=== PATIENT | male | born 1950 | race Caucasian/White ===

== ENCOUNTER 2016-06-29 11:43 | Inpatient (IN) | payer BC ==
[2016-06-29] VITALS (12 sets, daily range): BP systolic 73–183; BP diastolic 54–104
[~2016-06-29] VITALS: Ht 167.6 cm; Wt 61.7 kg
[2016-06-29] MEDS ORDERED: PROPOFOL 10 MG/ML (20ML) VIAL. IV ONE (12:00)
[2016-06-29] MEDS ORDERED: SUCCINYLCHOLINE 200 MG/10 ML VIAL. ONE (12:00)
[2016-06-29] MEDS ORDERED: ALBU8.5H5 IH (12:23)
[2016-06-29] MEDS ORDERED: ASPI81TA50 PO (12:23)
[2016-06-29] MEDS ORDERED: METO25TA9 PO (12:23)
[2016-06-29] MEDS ORDERED: BUDE10.2 IH (12:23)
[2016-06-29] MEDS ORDERED: FERR159T3 PO (12:23)
[2016-06-29] MEDS ORDERED: LISI1TAB3 PO (12:23)
[2016-06-29] MEDS ORDERED: ACET500T68 PO (12:23)
[2016-06-29] MEDS ORDERED: CYCL10TA2 PO (12:23)
[2016-06-29] MEDS ORDERED: ALBUTEROL SULFATE 2.5 MG/3 ML NEBU. ONE (12:52)
[2016-06-29] MEDS ORDERED: ALBUTEROL SULFATE 2.5 MG/3 ML NEBU. NEB ONE (13:00)
[2016-06-29 13:05] LABS: BASO # 0.1 x10^3/uL (0.0-0.2); BASO % 1 % (0-3); EOS % 0 % (0-3); HEMATOCRIT 49.6 % (39.0-53.0); HEMOGLOBIN 16.9 g/dL (13.0-17.5); LYMPH # 0.9 x10^3/uL (1.0-4.8); LYMPH % 10 % (24-48); MEAN CORPUSCULAR HEMOGLOBIN 32 pg (25-35); MEAN CORPUSCULAR HGB CONC 34 g/dL (31-37); MEAN CORPUSCULAR VOLUME 94 fL (79-100); MONO % 10 % (0-9); NEUT % 79 % (31-73); PLATELET COUNT 178 x10^3/uL (140-400); RED CELL DISTRIBUTION WIDTH 13.5 % (11.5-14.5); WHITE BLOOD COUNT 9.5 x10^3/uL (4.0-11.0)
[2016-06-29 13:15] LABS: INR 1.4 (0.8-1.1); PROTHROMBIN TIME PATIENT 16.4 SEC (11.7-14.0)
[2016-06-29] MEDS ORDERED: PROPOFOL 100 ML IV ONE (14:52)
[2016-06-29 15:07] LABS: HCO3 ABG 24 mmol/L (21-28); PCO2 ABG 54 mmHg (35-46); PH ABG 7.26 (7.35-7.45); PO2 ABG > 503 mmHg (65-108); SAT O2 ABG 100 % (92-99)
[2016-06-29 15:08] LABS: FIO2 ABG 100
--- NOTE | 2016-06-29 15:14 | RAD ---
Exam: AP portable chest. History: Status post intubation. Comparison: None. Findings: The heart and mediastinal structures are within normal limits for size. Lungs are without infiltrate. No pneumothorax or pleural effusion is appreciated. Endotracheal tube tip projects 7 cm above the mauricio. Esophagogastric tube is present with tip projecting at the fundus. Median sternotomy wires are present. Old right rib fractures are seen. Impression: 1. No acute cardiopulmonary process. 2. Endotracheal tube tip projects 7 cm above the mauricio.
[2016-06-29] MEDS ORDERED: fentaNYL PF VIAL 100 MCG/2 ML VIAL IV PRN (15:15)
[2016-06-29] MEDS: fentaNYL PF VIAL 100 MCG/2 ML VIAL IV PRN ×4 (15:29→23:31)
[2016-06-29] MEDS: PROPOFOL 100 ML IV PRN ×2 (15:32→21:14)
[2016-06-29 15:35] LABS: BASO % 1 % (0-3); EOS % 1 % (0-3); HEMATOCRIT 47.6 % (39.0-53.0); LYMPH # 0.5 x10^3/uL (1.0-4.8); LYMPH % 6 % (24-48); MEAN CORPUSCULAR HEMOGLOBIN 31 pg (25-35); MEAN CORPUSCULAR HGB CONC 34 g/dL (31-37); MEAN CORPUSCULAR VOLUME 94 fL (79-100); MONO % 8 % (0-9); NEUT % 85 % (31-73); PLATELET COUNT 143 x10^3/uL (140-400); RED BLOOD COUNT 5.09 x10^6/uL (4.30-5.70); RED CELL DISTRIBUTION WIDTH 13.2 % (11.5-14.5); WHITE BLOOD COUNT 8.3 x10^3/uL (4.0-11.0)
[2016-06-29 15:44] LABS: CALCIUM 8.5 mg/dL (8.5-10.1); CREATININE 0.5 mg/dL (0.7-1.3); GFR 167.4; POTASSIUM 4.2 mmol/L (3.5-5.1)
[2016-06-29 15:50] LABS: ALBUMIN 3.4 g/dL (3.4-5.0); ALBUMIN/GLOBULIN RATIO 0.9 (1.0-1.7); TOTAL BILIRUBIN 0.9 mg/dL (0.2-1.0); TOTAL PROTEIN 7.3 g/dL (6.4-8.2)
[2016-06-29] MEDS ORDERED: MIDAZOLAM HCL/PF 5 MG/5 ML VIAL. ONE ×2 (15:55→16:00)
[2016-06-29] MEDS ORDERED: MIDAZOLAM HCL/PF 2 MG/2 ML VIAL. IV ONE (16:15)
--- NOTE | 2016-06-29 16:24 | PDOC ---
Provider Note Provider Note full note dictated DESHAWN MARTINEZ MD Jun 29, 2016 16:24
[2016-06-29] MEDS: IPRATRPIUM/ALBUTEROL 0.5/2.5MG 3 ML NEBU. NEB SCH ×2 (17:00→19:40)
[2016-06-29 17:16] LABS: HCO3 ABG 23 mmol/L (21-28); PCO2 ABG 38 mmHg (35-46); PO2 ABG 141 mmHg (65-108); SAT O2 ABG 99 % (92-99)
[2016-06-29 17:17] LABS: FIO2 ABG 40
--- NOTE | 2016-06-29 17:36 | CONS ---
DATE OF CONSULTATION: 06/29/2016 ATTENDING PHYSICIAN: Dr. Kumar. REASON FOR CONSULTATION: Respiratory failure, recently diagnosed lung mass, status post bronchoscopy, and hemoptysis post-bronchoscopy. HISTORY OF PRESENT ILLNESS: The patient is a 65-year-old male who was seen recently in the office on 06/26/2016 for evaluation of a lung mass. He smoked heavily for 50 years up to 2 packs per day and was still smoking cigarettes. He has been having a cough for the past one year, and the cough increased in intensity and was worsening day and night. He had occasional hemoptysis as well. He lost about 20 pounds in the last few months. The patient underwent CT chest at [facility] which showed a 5.4 cm x 5.2 cm mass in the left upper lobe and left hilar area. This was compressing the left upper lobe and also probably resulting in an endobronchial lesion as well. mass was also encroaching the descending aorta. The patient had left upper lobe consolidation which was on a postobstructive basis. He had mild subcarinal adenopathy as well. He was advised to have a bronchoscopy, and he agreed to proceed with it. The patient underwent bronchoscopy today. He had a paralyzed left vocal cord, which explains his hoarseness. He had an endobronchial lesion distal to the left main stem bronchus and near complete occlusion of the left upper lobe bronchus by the endobronchial tumor. He had multiple biopsies performed. Postbiopsy, he did develop bleeding. At that time, I had changed to a therapeutic scope, and all the fresh blood was removed. Squirts of epinephrine were used to stop the bleeding. At the end of inspection, the patient's bleeding had completely stopped, and airway patency was achieved. The patient subsequently was monitored in the Outpatient Bronchoscopy Unit, and 15 minutes post-bronchoscopy, I was called as the patient was in respiratory distress. I arrived immediately, and the patient appeared to be in significant respiratory distress. Nurses have reported that he had coughed up bright red blood as well but appeared to be cyanotic. At that time, Anesthesia was called, and the patient underwent emergent intubation. He was transferred to the ICU and was placed on assist control mode. His initial blood pressure was markedly elevated with systolic in the 180s and diastolic was also in the 120s. There was no fresh blood seen at the time of intubation around the vocal cords or in the endotracheal tube. We did a stat repeat hemoglobin, and it was 16.0, and preprocedure, it was 16.9. Chest x-ray did not reveal any fresh blood in the airway. Once the patient was stabilized, I re-did a bronchoscopy, and only some fresh blood was seen down into the right mainstem. I have carefully inspected the left upper lobe area. There was a clot which has formed in the left upper lobe biopsy site, and there was no active bleeding. The rest of the blood from both the right and left main stem was aspirated. One squirt of epinephrine was again dropped into the left upper lobe biopsy site. The patient's arterial blood gases revealed a pH of 7.26, pCO2 of 54, and pO2 of 503 with a bicarbonate of 24 while on assist control rate of 20 with tidal volume 550. This ABG was obtained at least 35-40 minutes postintubation and postbagging suggesting that his pCO2 may have been markedly elevated at the time of respiratory distress. PAST MEDICAL HISTORY: Significant for COPD, suspect severe from 50 years of tobaccoism up to 2 packs per day. PAST SURGICAL HISTORY: Include back surgery, cyst removals from the breast which were benign, heel and wrist surgery, double bypass surgery in 06/2014, and cataract removal. ALLERGIES: HYDROCODONE. SOCIAL HISTORY: Smoked 50 plus year up to 2 packs per day and was still smoking recently. MEDICATIONS: At home include cyclobenzaprine, metoprolol, lisinopril, low-dose aspirin, Symbicort, albuterol inhaler, and [id number] allergy medicines and iron. REVIEW OF SYSTEMS: Unable to obtain as the patient is on the ventilator. PHYSICAL EXAMINATION: VITAL SIGNS: His latest vital signs while on propofol have varied from systolic of 183 up to systolic in the 120s. HEENT: Sclerae are nonicteric. NECK: Supple. LUNGS: With diminished breath sounds but no wheezing. CARDIOVASCULAR: Regular rate. ABDOMEN: Soft, nontender. EXTREMITIES: With no pitting edema. LABORATORY DATA: Reviewed. ABGs were discussed in my history of present illness. White cell count 8.3, hemoglobin 16.0, and platelets are 143. BUN is 11, creatinine 0.5, and potassium 4.2. IMPRESSION: 1. Acute respiratory failure, status post bronchoscopy. Most likely etiology is related to acute hypercapnic respiratory failure from highly suspected end-stage chronic obstructive pulmonary disease. Hemoptysis post-biopsy with aspiration of blood , effect of sedative resulting in hypoventilation and poor pulmonary reserve, all have contributed to the respiratory failure. However, upon initial evaluation post-biopsy, the bleeding did stop. Upon re-inspection, during another bronchoscopy the clot was still present in the left upper lobe post-biopsy site, and there was no active bleeding seen. In my opinion, predominant respiratory failure was contributed by his underlying poor pulmonary reserve. 2. A 5.4 cm x 5.2 cm mass in the left upper lobe and left hilar area with complete occlusion of the left upper lobe bronchus and also endobronchial lesion starting at the distal left mainstem resulting in near complete occlusion of the left upper lobe bronchus. 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 His stage appears to be advanced at present. We will wait for the biopsy results and may need a PET scan as an outpatient. It does not appear to be surgical at present. 3. Suspected underlying end-stage chronic obstructive pulmonary disease with ongoing tobaccoism. 4. History of hypertension. RECOMMENDATIONS: 1. We will continue with present assist control mode and correct his respiratory acidosis. We will rest him overnight and proceed with CPAP trial in the morning, and if his hypercapnia is compensated on CPAP trials possible extubation. 5. Monitor chest x-ray. No further active bleeding noticed on recent bronchoscopy. Hemoglobin is stable and chest x-ray with no radiographic evidence of alveolar blood. 6. Bronchodilators. 7. SCDs for DVT prophylaxis. 8. We will need PET scan as an outpatient. 9. We will need medical Oncology and Radiation Oncology consultations once biopsy results are confirmed. 10. Discussed with the patient's and the entire family. Discussed with Dr. Kumar as well. Critical Care Time: 40 minutes. DESHAWN MARTINEZ MD DR: MACY/eleazar JOB#: [id number] / [id number]
--- NOTE | 2016-06-29 18:36 | OP ---
DATE OF SURGERY: 06/29/2016 INDICATION: Lung mass and hoarseness suspecting vocal cord paralysis. Informed consent was obtained from the patient. All risks and benefits were explained. He agreed to proceed with the procedure. Sedation was with propofol, was used by Anesthesia. Bronchoscope was introduced initially through the left nostril, but they were tight. As a result, oral route was preferred. Bronchoscope was passed through the upper airway. The vocal cords were reached. The left vocal cord did not move and consistent with paralysis. The right vocal cord did move. Trachea was entered. No tracheal lesions were seen. The mauricio was sharp. The right lung was first examined. Minimal light-colored secretion was seen in the right mainstem. All subsegments of right upper, right middle, and right lower lobe were examined. They were patent. No endobronchial lesions were seen. The left lung was then examined. The distal left mainstem revealed mucosal abnormality consistent with cancer. Further inspection revealed a near total occlusion of the left upper lobe bronchus with the endobronchial lesion. Biopsies x 5 were performed from this area. Bronchial wash was also performed. Post-biopsy bleeding was observed. Epinephrine squirts were used to stop the bleeding, and a therapeutic scope was used to aspirate the blood from the right lung. Bleeding was completely stopped. IMPRESSION: 1. 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 2. Endobronchial lesion seen in the distal left main stem bronchus beyond 2 cm from the left mainstem and then extending into the left upper lobe with near complete occlusion of the left upper lobe bronchus. Biopsies x5 were performed and bronchial wash was performed from this area and sent for appropriate studies. Post-biopsy bleeding was controlled with epinephrine squirts. Adequate clot formed at biopsy site. 3. Follow the results of biopsy and cytology. DESHAWN MARTINEZ MD DR: MACY/eleazar JOB#: [id number] / [id number]
--- NOTE | 2016-06-29 18:45 | HP ---
ADMIT DATE: 06/29/2016 CHIEF COMPLAINT: Respiratory failure. HISTORY OF PRESENT ILLNESS: The patient is a pleasant middle-aged white male who smokes 2-1/2 pack per day for 50 years. He now has a lung mass. Dr. Raphael has been trying to evaluate. He did have a broch today and the patient desatted after some hemoptysis. He has now been intubated and admitted to the ICU [id number]. PAST MEDICAL HISTORY: COPD, lung mass, hypertension and back surgeries, benign breast cyst, healing wrist surgery, cardiac bypass surgery, cataract surgery. ALLERGIES: HYDROCODONE. FAMILY HISTORY: Coronary artery disease. SOCIAL HISTORY: Smokes 2-1/2 pack per day for 50 years. No drinking or drugs. MEDICATIONS: Reviewed, please refer to the MRAD. REVIEW OF SYSTEMS: Unobtainable, the patient is on the vent. PHYSICAL EXAMINATION: VITAL SIGNS: Temperature afebrile, pulse 100, respirations 18, blood pressure 144/90. GENERAL: He is sedated on the vent. HEART: Normal S1, S2. LUNGS: Coarse. ABDOMEN: Soft, positive bowel sounds. EXTREMITIES: Trace edema. SKIN: No rashes. ENDOCRINE: No thyromegaly. LYMPHATICS: No cervical nodes. HEMATOPOIETIC: No bruising. ASSESSMENT AND PLAN: Respiratory failure in a middle-aged male who has a lung mass, suspect this could be a malignancy. The patient has been admitted to the ICU. Dr. Raphael has been consulted. I just discussed the case with him. He is going to repeat the bronch in fact he just completed this there was a lot of blood. He is open to do some in the pulmonary last night and maybe tomorrow, but extubate. For now, we will continue home medicines, ICU monitoring. PROGNOSIS: Guarded, await pathology report. LISA MAST DO DR: AILYN/eleazar JOB#: [id number] / [id number]
--- NOTE | 2016-06-29 20:49 | OP ---
DATE OF SURGERY: BRONCHOSCOPY NOTE INDICATION: To assess the need____ for any bleeding post-biopsy. DESCRIPTION OF PROCEDURE: Informed consent was obtained from the patient's and the patient was already intubated. Bronchoscope was introduced through the endotracheal tube. The distal trachea was visualized. Some minimal fresh blood was seen in the right mainstem and the distal trachea, which was aspirated. Upon further inspection, there was no active bleeding seen in the right lung. Bronchoscope was introduced into the left lung. The previously seen endobronchial mass was covered with a clot. I did not see any active oozing of blood. Minimal dark blood was aspirated from the left lower lobe area. One squirt of epinephrine was also introduced into the clot. IMPRESSION: 1. No active bleeding seen post-biopsy,( especially in the left upper lobe area , where there was a clot that has formed on the biopsy site ) 2. Minimal fresh blood was aspirated from the right mainstem and right lower lobe. The airway patency was achieved. 3. Follow the results of the previous biopsy. DESHAWN MARTINEZ MD DR: MACY/eleazar JOB#: [id number] / [id number]
[2016-06-29] MEDS ORDERED: CHLORHEXIDINE 0.12% 15 ML MOUTHWASH. MM SCH (21:00)
[2016-06-29] MEDS ORDERED: NOREPINEPHRIN PREMIX 250 ML IV PRN (23:15)
[2016-06-29] MEDS ORDERED: IV NORMAL SALINE 1000ML BAG 1,000 ML IV SCH (23:15)
[2016-06-29] MEDS ORDERED: IV NORMAL SALINE 500ML BAG 500 ML IV ONE (23:15)
[2016-06-30] VITALS (22 sets, daily range): BP systolic 81–166; BP diastolic 49–91
[2016-06-30 06:26] LABS: HCO3 ABG 21 mmol/L (21-28); PCO2 ABG 37 mmHg (35-46); PH ABG 7.38 (7.35-7.45); PO2 ABG 106 mmHg (65-108); SAT O2 ABG 98 % (92-99)
[2016-06-30 06:27] LABS: FIO2 ABG 35
[2016-06-30] MEDS: PROPOFOL 100 ML IV PRN (06:50)
[2016-06-30] MEDS ORDERED: ACETAMINOPHEN 325 MG TABLET. PO PRN (07:15)
[2016-06-30] MEDS: IPRATRPIUM/ALBUTEROL 0.5/2.5MG 3 ML NEBU. NEB SCH ×4 (07:32→19:55)
[2016-06-30] MEDS ORDERED: FERROUS SULFATE 325 MG TABLET. PO SCH (08:00)
--- NOTE | 2016-06-30 08:18 | ACF ---
Admit Criteria Forms Admit Criteria Forms Admit Criteria Forms RESPIRATORY FAILURE GRG Clinical Indications for Admission to Inpatient Care (Place 'X' for any and all applicable criteria): Hospital admission is needed for appropriate care of the patient because of acute respiratory failure or insufficiency as indicated by ANY ONE of the following(1)(2)(3)(4)(5)(6)(7)(8): [X]I. Mechanical ventilation needed (acute invasive or noninvasive) [ ]II. Severe ventilation deficit as indicated by ANY ONE of the following (9) [ ]a) Respiratory acidosis (pH less than 7.32 and partial pressure of carbon dioxide greater than 40 mm Hg (5.3 kPa)) [ ]b) Partial pressure of carbon dioxide greater than 44 mm Hg (5.9 kPa ) (new) [ ]c) Airflow measurements less than 25% of predicted (eg, peak expiratory flow rate less than 100 L/minute) [ ]d) Forced vital capacity less than 15 mL/kg of ideal body weight, or 50% decrease in vital capacity from baseline [ ]III. Noncardiac pulmonary edema not resolving with rapid emergency treatment (8) [ ]IV. Severe respiratory distress as indicated by ANY ONE of the following: [ ]a) Severe tachypnea (respiratory rate greater than 30, greater than 45 for 6-month-old, greater than 60 for ) [ ]b) Severe hypoxemia (partial pressure of oxygen less than 50 mm Hg ( 6.7 kPa) on greater than 50% oxygen or partial pressure of oxygen to FIO2 ratio less than 200) [ ]c) Mental status deterioration from respiratory disease [ ]V. Airway obstruction or inadequate protection [A](10)(11) The original [employer] content created by [employer] has been revised. The portions of the content which have been revised are identified through the use of italic text or in bold, and [employer] has neither reviewed nor approved the modified material. All other unmodified content is copyright [employer]. Please see references footnoted in the original [employer] edition 2016 HELGA BARRIENTOS Jun 30, 2016 08:18
[2016-06-30 08:26] LABS: HCO3 ABG 22 mmol/L (21-28); PCO2 ABG 38 mmHg (35-46); PH ABG 7.38 (7.35-7.45); PO2 ABG 125 mmHg (65-108); SAT O2 ABG 98 % (92-99)
[2016-06-30 08:27] LABS: FIO2 ABG 35
--- NOTE | 2016-06-30 08:38 | RAD ---
Portable chest, 06/30/2016: History: Respiratory failure Comparison is made to yesterday's study. The ET tube location is unchanged. An NG tube extends into the stomach. There has been a previous median sternotomy. The heart size is normal. There is calcific plaquing of the aorta with prominence of the mediastinum at the level aortic knob. There is a left apical opacity which was obscured by overlying artifacts on the previous exam. There are a few scattered parenchymal scars. A small nodular opacity is projected over the left vertebrophrenic angle. There is no evidence of pleural fluid or pneumothorax. IMPRESSION: 1. The ET tube and NG tube are unchanged in positions. 2. Aortic atherosclerosis with enlargement of the aortic knob. 3. Left apical opacity raising the possibility of focal infiltrate or mass. An overlying costochondral ossification is less likely. 4. Small nodular opacity in the left vertebrophrenic angle. 5. CT scanning is suggested for further evaluation of these findings.
--- NOTE | 2016-06-30 08:41 | PDOC ---
PULMONARY PROGRESS NOTES Subjective fully awake, on CPAP trial Vitals Vital Signs Date Time Temp Pulse Resp B/P Pulse Ox O2 Delivery O2 Flow Rate FiO2 06/30/16 08:00 105 20 145/76 99 Ventilator 06/30/16 07:00 98.2 98.2 06/29/16 13:58 5 General: Alert, No acute distress Lungs: Clear Cardiovascular: S1 Abdomen: Soft Neuro Exam: Alert Extremities: No Edema Skin: Warm Labs Laboratory Tests Test 06/29/16 12:33 06/29/16 14:55 06/29/16 15:00 06/29/16 15:27 White Blood Count 9.5x10^3/uL (4.0-11.0) 8.3x10^3/uL (4.0-11.0) Red Blood Count 5.30x10^6/uL (4.30-5.70) 5.09x10^6/uL (4.30-5.70) Hemoglobin 16.9g/dL (13.0-17.5) 16.0g/dL (13.0-17.5) Hematocrit 49.6% (39.0-53.0) 47.6% (39.0-53.0) Mean Corpuscular Volume 94fL (79-100) 94fL (79-100) Mean Corpuscular Hemoglobin 32pg (25-35) 31pg (25-35) Mean Corpuscular Hemoglobin Concent 34g/dL (31-37) 34g/dL (31-37) Red Cell Distribution Width 13.5% (11.5-14.5) 13.2% (11.5-14.5) Platelet Count 178x10^3/uL (140-400) 143x10^3/uL (140-400) Neutrophils (%) (Auto) 79% (31-73) 85% (31-73) Lymphocytes (%) (Auto) 10% (24-48) 6% (24-48) Monocytes (%) (Auto) 10% (0-9) 8% (0-9) Eosinophils (%) (Auto) 0% (0-3) 1% (0-3) Basophils (%) (Auto) 1% (0-3) 1% (0-3) Neutrophils # (Auto) 7.5x10^3uL (1.8-7.7) 7.0x10^3uL (1.8-7.7) Lymphocytes # (Auto) 0.9x10^3/uL (1.0-4.8) 0.5x10^3/uL (1.0-4.8) Monocytes # (Auto) 1.0x10^3/uL (0.0-1.1) 0.7x10^3/uL (0.0-1.1) Eosinophils # (Auto) 0.0x10^3/uL (0.0-0.7) 0.0x10^3/uL (0.0-0.7) Basophils # (Auto) 0.1x10^3/uL (0.0-0.2) 0.0x10^3/uL (0.0-0.2) Prothrombin Time 16.4SEC (11.7-14.0) Prothromb Time International Ratio 1.4 (0.8-1.1) Activated Partial Thromboplast Time 36SEC (24-38) O2 Saturation 100% (92-99) Arterial Blood pH 7.26 (7.35-7.45) Arterial Blood pCO2 at Patient Temp 54mmHg (35-46) Arterial Blood pO2 at Patient Temp > 503mmHg (65-108) Arterial Blood HCO3 24mmol/L (21-28) Arterial Blood Base Excess -4mmol/L (-3-3) FiO2 100 Nasal Screen MRSA (PCR) Negative (Negative) Sodium Level 123mmol/L (136-145) Potassium Level 4.2mmol/L (3.5-5.1) Chloride Level 88mmol/L (98-107) Carbon Dioxide Level 27mmol/L (21-32) Anion Gap 8 (6-14) Blood Urea Nitrogen 11mg/dL (8-26) Creatinine 0.5mg/dL (0.7-1.3) Estimated GFR (Cockcroft-Gault) 167.4 BUN/Creatinine Ratio 22 (6-20) Glucose Level 106mg/dL (70-99) Calcium Level 8.5mg/dL (8.5-10.1) Total Bilirubin 0.9mg/dL (0.2-1.0) Aspartate Amino Transf (AST/SGOT) 22U/L (15-37) Alanine Aminotransferase (ALT/SGPT) 23U/L (16-63) Alkaline Phosphatase 81U/L (46-116) Total Protein 7.3g/dL (6.4-8.2) Albumin 3.4g/dL (3.4-5.0) Albumin/Globulin Ratio 0.9 (1.0-1.7) Test 06/29/16 17:15 06/30/16 05:43 06/30/16 08:20 O2 Saturation 99% (92-99) 98% (92-99) 98% (92-99) Arterial Blood pH 7.40 (7.35-7.45) 7.38 (7.35-7.45) 7.38 (7.35-7.45) Arterial Blood pCO2 at Patient Temp 38mmHg (35-46) 37mmHg (35-46) 38mmHg (35-46) Arterial Blood pO2 at Patient Temp 141mmHg (65-108) 106mmHg (65-108) 125mmHg (65-108) Arterial Blood HCO3 23mmol/L (21-28) 21mmol/L (21-28) 22mmol/L (21-28) Arterial Blood Base Excess -1mmol/L (-3-3) -3mmol/L (-3-3) -3mmol/L (-3-3) FiO2 40 35 35 Laboratory Tests Test 06/29/16 12:33 06/29/16 14:55 06/29/16 15:00 06/29/16 15:27 White Blood Count 9.5x10^3/uL (4.0-11.0) 8.3x10^3/uL (4.0-11.0) Red Blood Count 5.30x10^6/uL (4.30-5.70) 5.09x10^6/uL (4.30-5.70) Hemoglobin 16.9g/dL (13.0-17.5) 16.0g/dL (13.0-17.5) Hematocrit 49.6% (39.0-53.0) 47.6% (39.0-53.0) Mean Corpuscular Volume 94fL (79-100) 94fL (79-100) Mean Corpuscular Hemoglobin 32pg (25-35) 31pg (25-35) Mean Corpuscular Hemoglobin Concent 34g/dL (31-37) 34g/dL (31-37) Red Cell Distribution Width 13.5% (11.5-14.5) 13.2% (11.5-14.5) Platelet Count 178x10^3/uL (140-400) 143x10^3/uL (140-400) Neutrophils (%) (Auto) 79% (31-73) 85% (31-73) Lymphocytes (%) (Auto) 10% (24-48) 6% (24-48) Monocytes (%) (Auto) 10% (0-9) 8% (0-9) Eosinophils (%) (Auto) 0% (0-3) 1% (0-3) Basophils (%) (Auto) 1% (0-3) 1% (0-3) Neutrophils # (Auto) 7.5x10^3uL (1.8-7.7) 7.0x10^3uL (1.8-7.7) Lymphocytes # (Auto) 0.9x10^3/uL (1.0-4.8) 0.5x10^3/uL (1.0-4.8) Monocytes # (Auto) 1.0x10^3/uL (0.0-1.1) 0.7x10^3/uL (0.0-1.1) Eosinophils # (Auto) 0.0x10^3/uL (0.0-0.7) 0.0x10^3/uL (0.0-0.7) Basophils # (Auto) 0.1x10^3/uL (0.0-0.2) 0.0x10^3/uL (0.0-0.2) Prothrombin Time 16.4SEC (11.7-14.0) Prothromb Time International Ratio 1.4 (0.8-1.1) Activated Partial Thromboplast Time 36SEC (24-38) O2 Saturation 100% (92-99) Arterial Blood pH 7.26 (7.35-7.45) Arterial Blood pCO2 at Patient Temp 54mmHg (35-46) Arterial Blood pO2 at Patient Temp > 503mmHg (65-108) Arterial Blood HCO3 24mmol/L (21-28) Arterial Blood Base Excess -4mmol/L (-3-3) FiO2 100 Nasal Screen MRSA (PCR) Negative (Negative) Sodium Level 123mmol/L (136-145) Potassium Level 4.2mmol/L (3.5-5.1) Chloride Level 88mmol/L (98-107) Carbon Dioxide Level 27mmol/L (21-32) Anion Gap 8 (6-14) Blood Urea Nitrogen 11mg/dL (8-26) Creatinine 0.5mg/dL (0.7-1.3) Estimated GFR (Cockcroft-Gault) 167.4 BUN/Creatinine Ratio 22 (6-20) Glucose Level 106mg/dL (70-99) Calcium Level 8.5mg/dL (8.5-10.1) Total Bilirubin 0.9mg/dL (0.2-1.0) Aspartate Amino Transf (AST/SGOT) 22U/L (15-37) Alanine Aminotransferase (ALT/SGPT) 23U/L (16-63) Alkaline Phosphatase 81U/L (46-116) Total Protein 7.3g/dL (6.4-8.2) Albumin 3.4g/dL (3.4-5.0) Albumin/Globulin Ratio 0.9 (1.0-1.7) Test 06/29/16 17:15 06/30/16 05:43 06/30/16 08:20 O2 Saturation 99% (92-99) 98% (92-99) 98% (92-99) Arterial Blood pH 7.40 (7.35-7.45) 7.38 (7.35-7.45) 7.38 (7.35-7.45) Arterial Blood pCO2 at Patient Temp 38mmHg (35-46) 37mmHg (35-46) 38mmHg (35-46) Arterial Blood pO2 at Patient Temp 141mmHg (65-108) 106mmHg (65-108) 125mmHg (65-108) Arterial Blood HCO3 23mmol/L (21-28) 21mmol/L (21-28) 22mmol/L (21-28) Arterial Blood Base Excess -1mmol/L (-3-3) -3mmol/L (-3-3) -3mmol/L (-3-3) FiO2 40 35 35 Medications Active Scripts Medications Dose Route/Sig Days Date Category Acetaminophen 500 Mg Tablet 1 Tab PO PRN PRN 06/29/16 Reported Iron (Ferrous Sulfate, Dried) 159 Mg Tablet.er 159 Mg PO DAILY 06/29/16 Reported Proair Hfa (Albuterol Sulfate) 8.5 Gm Hfa.aer.ad 8.5 Gm IH PREOP PRN PRN 06/29/16 Reported Symbicort 160-4.5 Mcg Inhaler (Budesonide/Formoterol Fumarate) 10.2 Gm Hfa.aer.ad 2 Puff IH BID 06/29/16 Reported Aspir-Low (Aspirin) 81 Mg Tablet.dr 1 Tab PO DAILY 06/29/16 Reported Lisinopril-Hctz 10-12.5 Mg Tab (Lisinopril/Hydrochlorothiazide) 1 Each Tablet 1 Tab PO DAILY 06/29/16 Reported Metoprolol Succinate ( Xl ) (Metoprolol Succinate) 25 Mg Tab.er.24h 1 Tab PO DAILY 06/29/16 Reported Cyclobenzaprine Hcl 10 Mg Tablet 1 Tab PO TID 06/29/16 Reported Impression . 1. Acute respiratory failure, status post bronchoscopy. Most likely etiology is related to acute hypercapnic respiratory failure from highly suspected end-stage chronic obstructive pulmonary disease. Hemoptysis post-biopsy with aspiration of blood , effect of sedative resulting in hypoventilation and poor pulmonary reserve, all have contributed to the respiratory failure. However, upon initial evaluation post-biopsy, the bleeding did stop. Upon re-inspection, during another bronchoscopy the clot was still present in the left upper lobe post-biopsy site, and there was no active bleeding seen. In my opinion, predominant respiratory failure was contributed by his underlying poor pulmonary reserve. 2. A 5.4 cm x 5.2 cm mass in the left upper lobe and left hilar area with complete occlusion of the left upper lobe bronchus and also endobronchial lesion starting at the distal left mainstem resulting in near complete occlusion of the left upper lobe bronchus. 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 His stage appears to be advanced at present. We will wait for the biopsy results and may need a PET scan as an outpatient. It does not appear to be surgical at present. 3. Suspected underlying end-stage chronic obstructive pulmonary disease with ongoing tobaccoism. 4. History of hypertension. Plan . 1. Doing well on CPAP trial, will proceed with extubation. ABG back to normal. . 2. Bronchodilators. 3. SCDs for DVT prophylaxis. 4. We will need PET scan as an outpatient. 5. Consult medical and Radiation Oncology 6. Follow biopsy results 10. Discussed with the patient's discharge home in am and f/u with me in the office as scheduled DESHAWN MARTINEZ MD Jun 30, 2016 08:41
[2016-06-30] MEDS ORDERED: HYDROCHLOROTHIAZIDE 12.5 MG CAPSULE. PO SCH (09:00)
[2016-06-30] MEDS ORDERED: CYCLOBENZAPRINE 10 MG TABLET. PO SCH (09:00)
[2016-06-30] MEDS ORDERED: IOHEXOL 300 MG/ML 75 ML VIAL IV ONE (09:30)
[2016-06-30] MEDS: LISINOPRIL 10 MG TABLET PO SCH (10:40)
[2016-06-30] MEDS: CYCLOBENZAPRINE 10 MG TABLET. PO PRN ×2 (10:40→20:20)
[2016-06-30] MEDS: ASPIRIN CHEWABLE 81 MG TABLET. PO SCH (10:41)
[2016-06-30] MEDS: METOPROLOL SUCC 24HR ER 25 MG TAB.ER.24H. PO SCH (10:41)
--- NOTE | 2016-06-30 11:09 | PDOC ---
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 THANG COLLAZO DO Jun 30, 2016 11:09
--- NOTE | 2016-06-30 11:39 | PDOC ---
PROGRESS NOTES Chief Complaint Chief Complaint cc: acute respiratory failure, hemoptysis, lung mass, s/p bronchoscopy Left upper lung mass COPD HTN prior back surgery previous wrist surgery CAD prior CABG Cataracts with subsequent surgery. current tobacco use History of Present Illness History of Present Illness Patient seen and evaluated at bedside. Patient successfully extubated this AM. He c/o hoarseness in his throat and acute on chronic back pain, but states his breathing has improved. Heme/Oncology evaluated patient and ordered imaging. d/ w nurse. Vitals Vitals Vital Signs Date Time Temp Pulse Resp B/P Pulse Ox O2 Delivery O2 Flow Rate FiO2 06/30/16 11:00 121 20 165/89 92 Room Air 06/30/16 07:00 98.2 98.2 06/29/16 13:58 5 Physical Exam General: Alert, Oriented X3, Cooperative, No acute distress Heart: Normal S1, Normal S2, No murmurs, Other (tachycardic ) Lungs: Clear, Other (diminished inspiratory effort with coarse breath sounds L> R. Negative chest retractions and/or other accessory muscle use. ) Abdomen: Soft, No tenderness Extremities: No cyanosis, No edema Skin: No rashes Labs LABS Laboratory Tests Test 06/29/16 12:33 06/29/16 14:55 06/29/16 15:00 06/29/16 15:27 White Blood Count 9.5x10^3/uL (4.0-11.0) 8.3x10^3/uL (4.0-11.0) Red Blood Count 5.30x10^6/uL (4.30-5.70) 5.09x10^6/uL (4.30-5.70) Hemoglobin 16.9g/dL (13.0-17.5) 16.0g/dL (13.0-17.5) Hematocrit 49.6% (39.0-53.0) 47.6% (39.0-53.0) Mean Corpuscular Volume 94fL (79-100) 94fL (79-100) Mean Corpuscular Hemoglobin 32pg (25-35) 31pg (25-35) Mean Corpuscular Hemoglobin Concent 34g/dL (31-37) 34g/dL (31-37) Red Cell Distribution Width 13.5% (11.5-14.5) 13.2% (11.5-14.5) Platelet Count 178x10^3/uL (140-400) 143x10^3/uL (140-400) Neutrophils (%) (Auto) 79% (31-73) 85% (31-73) Lymphocytes (%) (Auto) 10% (24-48) 6% (24-48) Monocytes (%) (Auto) 10% (0-9) 8% (0-9) Eosinophils (%) (Auto) 0% (0-3) 1% (0-3) Basophils (%) (Auto) 1% (0-3) 1% (0-3) Neutrophils # (Auto) 7.5x10^3uL (1.8-7.7) 7.0x10^3uL (1.8-7.7) Lymphocytes # (Auto) 0.9x10^3/uL (1.0-4.8) 0.5x10^3/uL (1.0-4.8) Monocytes # (Auto) 1.0x10^3/uL (0.0-1.1) 0.7x10^3/uL (0.0-1.1) Eosinophils # (Auto) 0.0x10^3/uL (0.0-0.7) 0.0x10^3/uL (0.0-0.7) Basophils # (Auto) 0.1x10^3/uL (0.0-0.2) 0.0x10^3/uL (0.0-0.2) Prothrombin Time 16.4SEC (11.7-14.0) Prothromb Time International Ratio 1.4 (0.8-1.1) Activated Partial Thromboplast Time 36SEC (24-38) O2 Saturation 100% (92-99) Arterial Blood pH 7.26 (7.35-7.45) Arterial Blood pCO2 at Patient Temp 54mmHg (35-46) Arterial Blood pO2 at Patient Temp > 503mmHg (65-108) Arterial Blood HCO3 24mmol/L (21-28) Arterial Blood Base Excess -4mmol/L (-3-3) FiO2 100 Nasal Screen MRSA (PCR) Negative (Negative) Sodium Level 123mmol/L (136-145) Potassium Level 4.2mmol/L (3.5-5.1) Chloride Level 88mmol/L (98-107) Carbon Dioxide Level 27mmol/L (21-32) Anion Gap 8 (6-14) Blood Urea Nitrogen 11mg/dL (8-26) Creatinine 0.5mg/dL (0.7-1.3) Estimated GFR (Cockcroft-Gault) 167.4 BUN/Creatinine Ratio 22 (6-20) Glucose Level 106mg/dL (70-99) Calcium Level 8.5mg/dL (8.5-10.1) Total Bilirubin 0.9mg/dL (0.2-1.0) Aspartate Amino Transf (AST/SGOT) 22U/L (15-37) Alanine Aminotransferase (ALT/SGPT) 23U/L (16-63) Alkaline Phosphatase 81U/L (46-116) Total Protein 7.3g/dL (6.4-8.2) Albumin 3.4g/dL (3.4-5.0) Albumin/Globulin Ratio 0.9 (1.0-1.7) Test 06/29/16 17:15 06/30/16 05:43 06/30/16 08:20 O2 Saturation 99% (92-99) 98% (92-99) 98% (92-99) Arterial Blood pH 7.40 (7.35-7.45) 7.38 (7.35-7.45) 7.38 (7.35-7.45) Arterial Blood pCO2 at Patient Temp 38mmHg (35-46) 37mmHg (35-46) 38mmHg (35-46) Arterial Blood pO2 at Patient Temp 141mmHg (65-108) 106mmHg (65-108) 125mmHg (65-108) Arterial Blood HCO3 23mmol/L (21-28) 21mmol/L (21-28) 22mmol/L (21-28) Arterial Blood Base Excess -1mmol/L (-3-3) -3mmol/L (-3-3) -3mmol/L (-3-3) FiO2 40 35 35 Review of Systems Review of Systems (+) throat hoarseness (+) acute on chronic back pain (+) SOB, improved Denies chest pain, recurrent hemoptysis, abdominal pain, n/v/d, or fever/chills. Assessment and Plan Assessmemt and Plan Assessment: 1.) Acute respiratory failure s/p bronchoscopy 2.) 5.4 cm x 5.2 cm mass in the left upper lobe and left hilar area - pending biopsy results 3.) vocal cord paralysis on the left side secondary to recurrent laryngeal nerve involvement. 4.) end stage COPD 5.) ongoing tobacco use 6.) HTN 7.) CAD with prior CABG. 8.) acute on chronic back pain with prior history of back surgery Plan: 1.) continue ICU monitoring; plan to transfer to medical floor and potential discharge when okay with subspecialities 2.) continue pain management 3.) maintain O2 saturation >90%, duonebs treatment prn 4.) appreciate subspeciality input 5.) f/u on imaging, per heme/onc 6.) Monitor AM labs 7.) tobacco cessation counseling 8.) DVT ppx - SCDs 9.) continue home medications as appropriate Problems: Comment Review of Relevant I have reviewed the following items edmond (where applicable) has been applied. Labs Laboratory Tests Test 06/29/16 12:33 06/29/16 14:55 06/29/16 15:00 06/29/16 15:27 White Blood Count 9.5x10^3/uL (4.0-11.0) 8.3x10^3/uL (4.0-11.0) Red Blood Count 5.30x10^6/uL (4.30-5.70) 5.09x10^6/uL (4.30-5.70) Hemoglobin 16.9g/dL (13.0-17.5) 16.0g/dL (13.0-17.5) Hematocrit 49.6% (39.0-53.0) 47.6% (39.0-53.0) Mean Corpuscular Volume 94fL (79-100) 94fL (79-100) Mean Corpuscular Hemoglobin 32pg (25-35) 31pg (25-35) Mean Corpuscular Hemoglobin Concent 34g/dL (31-37) 34g/dL (31-37) Red Cell Distribution Width 13.5% (11.5-14.5) 13.2% (11.5-14.5) Platelet Count 178x10^3/uL (140-400) 143x10^3/uL (140-400) Neutrophils (%) (Auto) 79% (31-73) 85% (31-73) Lymphocytes (%) (Auto) 10% (24-48) 6% (24-48) Monocytes (%) (Auto) 10% (0-9) 8% (0-9) Eosinophils (%) (Auto) 0% (0-3) 1% (0-3) Basophils (%) (Auto) 1% (0-3) 1% (0-3) Neutrophils # (Auto) 7.5x10^3uL (1.8-7.7) 7.0x10^3uL (1.8-7.7) Lymphocytes # (Auto) 0.9x10^3/uL (1.0-4.8) 0.5x10^3/uL (1.0-4.8) Monocytes # (Auto) 1.0x10^3/uL (0.0-1.1) 0.7x10^3/uL (0.0-1.1) Eosinophils # (Auto) 0.0x10^3/uL (0.0-0.7) 0.0x10^3/uL (0.0-0.7) Basophils # (Auto) 0.1x10^3/uL (0.0-0.2) 0.0x10^3/uL (0.0-0.2) Prothrombin Time 16.4SEC (11.7-14.0) Prothromb Time International Ratio 1.4 (0.8-1.1) Activated Partial Thromboplast Time 36SEC (24-38) O2 Saturation 100% (92-99) Arterial Blood pH 7.26 (7.35-7.45) Arterial Blood pCO2 at Patient Temp 54mmHg (35-46) Arterial Blood pO2 at Patient Temp > 503mmHg (65-108) Arterial Blood HCO3 24mmol/L (21-28) Arterial Blood Base Excess -4mmol/L (-3-3) FiO2 100 Nasal Screen MRSA (PCR) Negative (Negative) Sodium Level 123mmol/L (136-145) Potassium Level 4.2mmol/L (3.5-5.1) Chloride Level 88mmol/L (98-107) Carbon Dioxide Level 27mmol/L (21-32) Anion Gap 8 (6-14) Blood Urea Nitrogen 11mg/dL (8-26) Creatinine 0.5mg/dL (0.7-1.3) Estimated GFR (Cockcroft-Gault) 167.4 BUN/Creatinine Ratio 22 (6-20) Glucose Level 106mg/dL (70-99) Calcium Level 8.5mg/dL (8.5-10.1) Total Bilirubin 0.9mg/dL (0.2-1.0) Aspartate Amino Transf (AST/SGOT) 22U/L (15-37) Alanine Aminotransferase (ALT/SGPT) 23U/L (16-63) Alkaline Phosphatase 81U/L (46-116) Total Protein 7.3g/dL (6.4-8.2) Albumin 3.4g/dL (3.4-5.0) Albumin/Globulin Ratio 0.9 (1.0-1.7) Test 06/29/16 17:15 06/30/16 05:43 06/30/16 08:20 O2 Saturation 99% (92-99) 98% (92-99) 98% (92-99) Arterial Blood pH 7.40 (7.35-7.45) 7.38 (7.35-7.45) 7.38 (7.35-7.45) Arterial Blood pCO2 at Patient Temp 38mmHg (35-46) 37mmHg (35-46) 38mmHg (35-46) Arterial Blood pO2 at Patient Temp 141mmHg (65-108) 106mmHg (65-108) 125mmHg (65-108) Arterial Blood HCO3 23mmol/L (21-28) 21mmol/L (21-28) 22mmol/L (21-28) Arterial Blood Base Excess -1mmol/L (-3-3) -3mmol/L (-3-3) -3mmol/L (-3-3) FiO2 40 35 35 Laboratory Tests Test 06/29/16 12:33 06/29/16 14:55 06/29/16 15:00 06/29/16 15:27 White Blood Count 9.5x10^3/uL (4.0-11.0) 8.3x10^3/uL (4.0-11.0) Red Blood Count 5.30x10^6/uL (4.30-5.70) 5.09x10^6/uL (4.30-5.70) Hemoglobin 16.9g/dL (13.0-17.5) 16.0g/dL (13.0-17.5) Hematocrit 49.6% (39.0-53.0) 47.6% (39.0-53.0) Mean Corpuscular Volume 94fL (79-100) 94fL (79-100) Mean Corpuscular Hemoglobin 32pg (25-35) 31pg (25-35) Mean Corpuscular Hemoglobin Concent 34g/dL (31-37) 34g/dL (31-37) Red Cell Distribution Width 13.5% (11.5-14.5) 13.2% (11.5-14.5) Platelet Count 178x10^3/uL (140-400) 143x10^3/uL (140-400) Neutrophils (%) (Auto) 79% (31-73) 85% (31-73) Lymphocytes (%) (Auto) 10% (24-48) 6% (24-48) Monocytes (%) (Auto) 10% (0-9) 8% (0-9) Eosinophils (%) (Auto) 0% (0-3) 1% (0-3) Basophils (%) (Auto) 1% (0-3) 1% (0-3) Neutrophils # (Auto) 7.5x10^3uL (1.8-7.7) 7.0x10^3uL (1.8-7.7) Lymphocytes # (Auto) 0.9x10^3/uL (1.0-4.8) 0.5x10^3/uL (1.0-4.8) Monocytes # (Auto) 1.0x10^3/uL (0.0-1.1) 0.7x10^3/uL (0.0-1.1) Eosinophils # (Auto) 0.0x10^3/uL (0.0-0.7) 0.0x10^3/uL (0.0-0.7) Basophils # (Auto) 0.1x10^3/uL (0.0-0.2) 0.0x10^3/uL (0.0-0.2) Prothrombin Time 16.4SEC (11.7-14.0) Prothromb Time International Ratio 1.4 (0.8-1.1) Activated Partial Thromboplast Time 36SEC (24-38) O2 Saturation 100% (92-99) Arterial Blood pH 7.26 (7.35-7.45) Arterial Blood pCO2 at Patient Temp 54mmHg (35-46) Arterial Blood pO2 at Patient Temp > 503mmHg (65-108) Arterial Blood HCO3 24mmol/L (21-28) Arterial Blood Base Excess -4mmol/L (-3-3) FiO2 100 Nasal Screen MRSA (PCR) Negative (Negative) Sodium Level 123mmol/L (136-145) Potassium Level 4.2mmol/L (3.5-5.1) Chloride Level 88mmol/L (98-107) Carbon Dioxide Level 27mmol/L (21-32) Anion Gap 8 (6-14) Blood Urea Nitrogen 11mg/dL (8-26) Creatinine 0.5mg/dL (0.7-1.3) Estimated GFR (Cockcroft-Gault) 167.4 BUN/Creatinine Ratio 22 (6-20) Glucose Level 106mg/dL (70-99) Calcium Level 8.5mg/dL (8.5-10.1) Total Bilirubin 0.9mg/dL (0.2-1.0) Aspartate Amino Transf (AST/SGOT) 22U/L (15-37) Alanine Aminotransferase (ALT/SGPT) 23U/L (16-63) Alkaline Phosphatase 81U/L (46-116) Total Protein 7.3g/dL (6.4-8.2) Albumin 3.4g/dL (3.4-5.0) Albumin/Globulin Ratio 0.9 (1.0-1.7) Test 06/29/16 17:15 06/30/16 05:43 06/30/16 08:20 O2 Saturation 99% (92-99) 98% (92-99) 98% (92-99) Arterial Blood pH 7.40 (7.35-7.45) 7.38 (7.35-7.45) 7.38 (7.35-7.45) Arterial Blood pCO2 at Patient Temp 38mmHg (35-46) 37mmHg (35-46) 38mmHg (35-46) Arterial Blood pO2 at Patient Temp 141mmHg (65-108) 106mmHg (65-108) 125mmHg (65-108) Arterial Blood HCO3 23mmol/L (21-28) 21mmol/L (21-28) 22mmol/L (21-28) Arterial Blood Base Excess -1mmol/L (-3-3) -3mmol/L (-3-3) -3mmol/L (-3-3) FiO2 40 35 35 Microbiology 06/29/16 Gram Stain - Final, Complete Medications Current Medications Albuterol Sulfate (Ventolin Neb Soln) 2.5 mg STK-MED ONCE .ROUTE ; Start at 12:52; Stop 06/29/16 at 12:53; Status DC Albuterol Sulfate 2.5 mg 2.5 mg 1X ONCE NEB Last administered on 06/29/16 12: 58; Start 06/29/16 at 13:00; Stop 06/29/16 at 13:02; Status DC Propofol 100 ml @ As Directed STK-MED ONCE IV ; Start 06/29/16 at 14:52; Stop 06/29/16 at 14:53; Status DC Propofol (Diprivan) 100 ml @ 0 mls/hr CONT PRN IV PER PROTOCOL Last administered on 06/30/16 06:50; Start 06/29/16 at 15:15; Stop 06/30/16 at 10:48 ; Status DC Fentanyl Citrate (Fentanyl 2ml Vial) 25 mcg PRN Q1HR PRN IV COMM; Start at 15:15 Fentanyl Citrate (Fentanyl 2ml Vial) 50 mcg PRN Q1HR PRN IV COMM Last administered on 06/29/16 23:31; Start 06/29/16 at 15:15 Chlorhexidine Gluconate (Peridex) 15 ml BID MM Last administered on 06/29/16 21:14; Start 06/29/16 at 21:00; Stop 06/30/16 at 08:48; Status DC Morphine Sulfate 2 mg PRN Q1HR PRN IV COMM; Start 06/29/16 at 15:15 Morphine Sulfate 4 mg PRN Q1HR PRN IV COMM; Start 06/29/16 at 15:15 Midazolam HCl (Versed) 5 mg STK-MED ONCE .ROUTE ; Start 06/29/16 at 15:55; Stop 06/29/16 at 15:56; Status DC Midazolam HCl (Versed) 1 mg 1X ONCE IV Last administered on 06/29/16 16:09; Start 06/29/16 at 16:15; Stop 06/29/16 at 16:16; Status DC Albuterol/ Ipratropium 3 ml 3 ml RTQID NEB Last administered on 06/30/16 07:32 ; Start 06/29/16 at 16:20 Sodium Chloride 1,000 ml @ 100 mls/hr Q10H IV Last administered on 06/29/16 23:18; Start 06/29/16 at 23:15; Stop 06/30/16 at 10:48; Status DC Sodium Chloride 500 ml @ 500 mls/hr 1X ONCE IV Last administered on 23:18; Start 06/29/16 at 23:15; Stop 06/30/16 at 00:14; Status DC Norepinephrine Bitartrate (Levophed 8mg/ 250ml Premix Drip) 250 ml @ 0 mls/hr CONT PRN IV SEE I/O RECORD; Start 06/29/16 at 23:15; Stop 06/30/16 at 10:48; Status DC Acetaminophen (Tylenol) 650 mg PRN Q6HRS PRN PO PAIN; Start 06/30/16 at 07:15 Aspirin (Children'S Aspirin) 81 mg DAILYWBKFT PO Last administered on 10:41; Start 06/30/16 at 08:00 Cyclobenzaprine HCl (Flexeril) 10 mg TID PO ; Start 06/30/16 at 09:00; Stop at 09:17; Status DC Metoprolol Succinate (Toprol Xl) 25 mg DAILY PO Last administered on 06/30/16 10:41; Start 06/30/16 at 09:00 Ferrous Sulfate (Feosol) 325 mg DAILYWBKFT PO ; Start 06/30/16 at 08:00; Stop at 10:48; Status DC Lisinopril (Prinivil) 10 mg DAILY PO Last administered on 06/30/16 10:40; Start 06/30/16 at 09:00 Hydrochlorothiazide (Microzide) 12.5 mg DAILY PO Last administered on 10:41; Start 06/30/16 at 09:00 Midazolam HCl (Versed) 5 mg STK-MED ONCE .ROUTE ; Start 06/29/16 at 16:00; Stop 06/30/16 at 08:33; Status DC Cyclobenzaprine HCl (Flexeril) 10 mg PRN TID PRN PO PAIN Last administered on 10:40; Start 06/30/16 at 10:00 Iohexol (Omnipaque 300 Mg/ml) 75 ml 1X ONCE IV ; Start 06/30/16 at 09:30; Stop 06/30/16 at 09:31; Status DC Active Scripts Active Reported Acetaminophen 500 Mg Tablet 1 Tab PO PRN PRN Iron (Ferrous Sulfate, Dried) 159 Mg Tablet.er 159 Mg PO DAILY Proair Hfa (Albuterol Sulfate) 8.5 Gm Hfa.aer.ad 8.5 Gm IH PREOP PRN PRN Symbicort 160-4.5 Mcg Inhaler (Budesonide/Formoterol Fumarate) 10.2 Gm Hfa.aer.ad 2 Puff IH BID Aspir-Low (Aspirin) 81 Mg Tablet.dr 1 Tab PO DAILY Lisinopril-Hctz 10-12.5 Mg Tab (Lisinopril/Hydrochlorothiazide) 1 Each Tablet 1 Tab PO DAILY Metoprolol Succinate ( Xl ) (Metoprolol Succinate) 25 Mg Tab.er.24h 1 Tab PO DAILY Cyclobenzaprine Hcl 10 Mg Tablet 1 Tab PO TID Vitals/I & O Vital Sign - Last 24 Hours 06/29/16 06/29/16 06/29/16 06/29/16 12:37 13:45 13:58 14:40 Temp 98.5 98.5 98.5 98.5 Pulse 94 104 Resp 20 20 B/P 148/77 148/77 Pulse Ox 100 100 99 O2 Delivery Room Air Room Air NonRebreather Mask Ventilator O2 Flow Rate 5 5 4/06/29/16 06/29/16 06/29/16 14:45 15:00 15:00 15:29 Temp 97.7 97.7 Pulse 125 109 Resp 21 25 B/P 183/99 160/104 Pulse Ox 100 98 100 O2 Delivery Ventilator Room Air Ventilator Room Air 06/29/16 06/29/16 06/29/16 06/29/16 15:30 16:00 16:30 17:00 Pulse 90 95 94 95 Resp 20 24 B/P 78/63 91/68 122/77 99/75 Pulse Ox 98 98 98 100 O2 Delivery Ventilator Ventilator Ventilator 06/29/16 06/29/16 06/29/16 06/29/16 17:00 18:00 18:48 19:00 Pulse 93 92 Resp 20 20 20 B/P 91/64 90/64 Pulse Ox 99 99 99 99 O2 Delivery Ventilator Ventilator Ventilator Ventilator 06/29/16 06/29/16 06/29/16 06/29/16 19:34 19:55 20:00 20:00 Temp 97.9 97.9 Pulse 92 Resp 20 20 B/P 112/72 Pulse Ox 98 99 O2 Delivery Ventilator Ventilator Mechanical Ventilator Ventilator 06/29/16 06/29/16 06/29/16 06/29/16 21:00 22:00 23:00 23:31 Pulse 90 89 89 Resp 20 20 20 20 B/P 111/70 81/55 73/54 Pulse Ox 98 98 98 99 O2 Delivery Ventilator Ventilator Ventilator Ventilator 06/29/16 06/30/16 06/30/16 06/30/16 23:44 00:00 00:00 00:30 Temp 97.5 97.5 Pulse 89 Resp 20 B/P 86/59 90/59 Pulse Ox 99 98 O2 Delivery Ventilator Ventilator Mechanical Ventilator 06/30/16 06/30/16 06/30/16 06/30/16 01:00 01:00 01:30 02:00 Pulse 88 96 Resp 20 20 22 B/P 97/63 104/63 Pulse Ox 99 99 98 97 O2 Delivery Ventilator Ventilator Ventilator Ventilator 06/30/16 06/30/16 06/30/16 06/30/16 02:30 03:00 03:30 03:40 Pulse 94 Resp 20 B/P 100/62 81/49 87/57 Pulse Ox 97 97 O2 Delivery Ventilator Ventilator 06/30/16 06/30/16 06/30/16 06/30/16 04:00 04:00 04:00 04:30 Temp 98.3 98.3 Pulse 96 Resp 20 B/P 93/58 117/78 Pulse Ox 97 O2 Delivery Ventilator Mechanical Ventilator 06/30/16 06/30/16 06/30/16 06/30/16 05:00 05:30 06:00 07:00 Temp 98.2 98.2 Pulse 96 98 92 Resp 20 20 B/P 116/68 112/69 117/69 Pulse Ox 99 98 98 98 O2 Delivery Ventilator Ventilator Ventilator Ventilator 06/30/16 06/30/16 06/30/16 06/30/16 07:16 07:32 07:45 08:00 Pulse 105 Resp 20 B/P 145/76 Pulse Ox 98 99 O2 Delivery Mechanical Ventilator Ventilator Ventilator Ventilator 06/30/16 06/30/16 06/30/16 06/30/16 09:00 10:00 10:40 10:41 Pulse 114 119 114 114 Resp 24 20 B/P 153/91 166/86 153/91 153/91 Pulse Ox 97 97 O2 Delivery Ventilator Ventilator 06/30/16 11:00 Pulse 121 Resp 20 B/P 165/89 Pulse Ox 92 O2 Delivery Room Air Intake and Output 06/29/16 06/29/16 06/30/16 15:00 23:00 07:00 Intake Total 227 ml 788 ml Output Total 1080 ml 755 ml Balance -853 ml 33 ml Nutrition Consultation Dietary Evaluation: Recommendations by RD: Increase Calorie Intake, Protein supplementation Comments: Add vanilla flavored Ensure TID Provided education handouts on ways to increase calorie/protein intake at meals Encouraged nutrient dense foods first Expected Outcomes/Goals: meet 75% estimated nutrition needs no further wt loss Interpretation of weight loss: >20% in 1 year Malnutrition Findings: Reduced General Machinist Strength: N/A Reduced General Machinist Strength (Non-Sev: N/A Malnutrition related to morbid: No Weight Status: Appropriate Fluid Accumulation (N/A): N/A LISA MAST III, DO Jun 30, 2016 11:38
[2016-06-30] MEDS ORDERED: GADOBUTROL 7.5 MMOL/7.5 ML VIAL IV ONE (13:15)
--- NOTE | 2016-06-30 13:49 | RAD ---
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 Instructions: CT AFTER MRI / History: TECHNIQUE: Axial diffusion weighted imaging was obtained. Additional sagittal T1, axial T1, axial FLAIR, and axial T2 weighted imaging of the brain was also performed. Postcontrast T1 weighted imaging was also performed after intravenous administration of gadolinium based contrast. FINDINGS: There are scattered foci of FLAIR signal hyperintensity in the periventricular white matter which are nonspecific but most likely related to sequelae of chronic small vessel ischemic disease. A developmental venous anomaly is noted in the left temporal lobe which is a benign lesion. No evidence of acute intracranial hemorrhage. No restricted diffusion to indicate acute infarct. No extra-axial fluid collections. No midline shift or mass effect. Ventricular size is appropriate. Midline structures have a normal anatomic configuration. Pituitary gland and infundibulum are unremarkable. Basal cisterns are patent. Arterial flow voids at the skull base and major dural venous sinuses are maintained. Globes and orbits are unremarkable. Paranasal sinuses and mastoid air cells are clear. IMPRESSION: No acute intracranial abnormality. No pathologic enhancement or mass. Negative for acute or recent infarct. Electronically signed by: Sanjay Robledo (Jun 30, 2016 13:48:17)
--- NOTE | 2016-06-30 16:31 | RAD ---
CT of the abdomen and pelvis with contrast, 06/30/2016: History: Lung cancer staging Multidetector CT imaging was performed following an IV bolus injection of iodinated contrast material. No oral contrast material was administered as requested. The hepatic margins are mildly irregular. No hepatic mass is seen. There is a small radiopacity within the posterior aspect of the gallbladder compatible with a gallstone. No pericholecystic edema is seen. The pancreas is unremarkable. The spleen is within normal limits in size. There are several small subcentimeter low density lesions in the left kidney. These are too small to definitively characterize but are likely cysts. The kidneys show no evidence of obstruction. No adrenal abnormality is detected. There is moderate calcific plaquing of the abdominal aorta and its branches no abdominal or pelvic adenopathy is seen. The prostate gland is mildly enlarged. It contains several calcifications. There is a moderate amount of stool in the colon. The unopacified bowel loops are otherwise unremarkable. No free fluid or free air is evident in the abdomen or pelvis. There is an expansile lesion with a sclerotic rim in the right iliac bone. It measures 3.8 cm. It contains internal calcifications. 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 There is moderate multilevel degenerative change in the spine. 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 IMPRESSION: 1. Cholelithiasis. 2. Hepatic marginal irregularities raising the possibility of cirrhosis. 3. Probable small left renal cysts. 4. Nonspecific prostatic enlargement. 5. No CT evidence of metastatic disease in the abdomen or pelvis. 6. Chronic musculoskeletal findings as described above. PQRS Compliance Statement: One or more of the following individualized dose reduction techniques were utilized for this examination: 1. Automated exposure control 2. Adjustment of the mA and/or kV according to patient size 3. Use of iterative reconstruction technique
[2016-06-30] MEDS: fentaNYL PF VIAL 100 MCG/2 ML VIAL IV PRN ×2 (20:21→22:46)
[2016-07-01] VITALS (12 sets, daily range): BP systolic 108–150; BP diastolic 64–86
--- NOTE | 2016-07-01 01:38 | CONS ---
DATE OF CONSULTATION: 06/30/2016 REFERRING PROVIDER: Dr. Raphael. REASON FOR CONSULTATION: Lung mass. HISTORY OF PRESENT ILLNESS: The patient is a 65-year-old male who recently saw Dr. Raphael in clinic for stridor and severe COPD. CT imaging done at [facility] showed a 5.4 cm left upper lung mass invading into the left hilum and mediastinum. He underwent bronchoscopy yesterday and with biopsy did have some bleeding which led to airway compromise. He was extubated this morning and seems to be doing well. He does not chronically wear oxygen at home. He has had some shortness of breath and hemoptysis chronically, also with some mild persistent weight loss, though they cannot tell me an exact amount. PAST MEDICAL HISTORY: Tobacco abuse, severe COPD with compromised lung function per Dr. Raphael, hypertension, heart disease, chronic low back pain. PAST SURGICAL HISTORY: Breast cyst excision, benign; back surgery x 2, right wrist surgery, CABG two years ago, cataract surgery, left ankle surgery. FAMILY HISTORY: Heart disease. Dad from lung/throat cancer. SOCIAL HISTORY: Has smoked approximately 2 packs a day for 50 years. Drinks at least 3-4 beers daily and is having some anxiety being in the hospital without the alcohol. ALLERGIES: HYDROCODONE. CURRENT MEDICATIONS: Tylenol, DuoNeb, aspirin, Flexeril, hydrochlorothiazide, lisinopril, metoprolol, morphine. REVIEW OF SYSTEMS: Ten point review of systems attempted with the assistance of his and remarkable only as noted above. PHYSICAL EXAMINATION: VITAL SIGNS: Temperature 98.2, pulse 114, respiratory rate 20, blood pressure 153/91, 97% O2, now on 2 liters. GENERAL: He is alert and oriented, in no distress at this time, though having difficulty speaking. HEENT: Extraocular muscles are intact. Sclerae are without icterus. Mucous membranes are moist. CARDIOVASCULAR: Heart is tachycardic, but regular in rhythm. LUNGS: Wheezing present. Extubated just prior to me entering the room, coughing up numerous secretions. ABDOMEN: Soft, nontender. EXTREMITIES: No edema. NEUROLOGIC: Difficulty speaking currently. No focal deficits. IMAGING AND LABORATORY DATA: Outside CT reviewed as above. CBC, CMP unremarkable. ASSESSMENT AND PLAN: The patient is a 65-year-old male with the following medical problems: 1. A 5.4 cm left upper lung mass with invasion into the left hilum/mediastinum. There was not significant adenopathy noted on the skin. He underwent bronchoscopy yesterday with pathology pending. I discussed his case with Dr. Raphael, who believes that he will be a very poor surgical candidate due to his very compromised lung function. We do need to await the pending pathology, but clearly suspect this is a malignancy. Therefore, I have ordered further staging studies including CT abdomen/pelvis and MRI brain while he is here. I will plan to set up followup next week in clinic to review his pathology results. He will likely need some combination of chemotherapy/radiation and Dr. Currie has been consulted as well. 2. Severe chronic obstructive pulmonary disease with ongoing tobacco abuse. Not a surgical candidate. 3. Alcohol abuse with some agitation and withdrawal symptoms. Thank you for allowing me to participate in his care. I discussed this case with Dr. Raphael. THANG COLLAZO DO DR: ALO/eleazar JOB#: [id number] / [id number] LAM
[2016-07-01] MEDS: fentaNYL PF VIAL 100 MCG/2 ML VIAL IV PRN ×2 (01:52→06:42)
--- NOTE | 2016-07-01 05:47 | CONS ---
DATE OF CONSULTATION: 06/30/2016 REFERRING PHYSICIAN: Dr. Ulises Raphael. 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 He underwent bronchoscopy on 06/29/2016. Biopsies were obtained. Pathology is pending. Bronchoscopy was complicated by acute respiratory failure and acute CO2 retention requiring transient intubation. He is now extubated. We were asked to see him regarding radiation in combination with chemotherapy for his new diagnosis of lung cancer. ICD-10 C34.12 HISTORY OF PRESENT ILLNESS: The patient is a 65-year-old gentleman who beginning in April of this year, developed significant sore throat. He went to his primary doctor, Dr. Dany Mcdaniel in [place], [place], at which time he was sent to the Emergency Room at [facility]. Chest x-ray revealed a spot in the left lung of uncertain significance. He ultimately underwent a CT scan of the chest at [facility] in 06/2016 which did reveal left medial lung mass in the left upper lobe extending contiguously into the mediastinum, left hilum with left upper lobe airway narrowing and pretracheal adenopathy, all of which on my review was compatible with primary bronchogenic carcinoma. He underwent bronchoscopy by Dr. Raphael on 06/29/2016. This revealed left vocal cord paralysis and an endobronchial lesion distal to the left main stem bronchus with near complete occlusion of the left upper lobe bronchus by endobronchial tumor. Multiple biopsies were performed. Bleeding was encountered. Hemostasis was achieved. He then developed respiratory distress. Re-bronchoscopy revealed clot formed on the left upper lobe biopsy site with no active bleeding. Blood was aspirated from right and left main stem bronchi. He was intubated overnight and extubated without complications. The patient now notes ongoing fatigue, 10-15 pound weight loss, some headaches with nausea and vomiting, hoarseness over the last month. Prior to his bronchoscopy, he did have spotty hemoptysis. PAST MEDICAL HISTORY: Remarkable for coronary artery disease status post coronary artery bypass graft surgery 2 years ago at [facility], back surgery, benign breast surgery, right wrist fracture requiring surgery, cataract extraction. He has a history of COPD. ALLERGIES: CODEINE. MEDICATIONS: See hospital list. SOCIAL HISTORY: for 45 years. One adult daughter in [place]. 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 He enjoyed hunting until he was disabled from his COPD. FAMILY HISTORY: Father from lung and throat cancer at age 52. Half-brother of some kind of cancer. Daughter is a cancer survivor with other details not known to the patient. PHYSICAL EXAMINATION: GENERAL: Revealed a pleasant, conversant, somewhat hoarse gentleman in no acute distress, appearing older than his chronologic age. HEENT: Revealed no scleral icterus. Dentition was fair. LYMPH NODES: He had no supraclavicular or cervical adenopathy. LUNGS: Decreased breath sounds in both aleman. No wheezes or rhonchi. HEART: Regular without murmur or gallop. ABDOMEN: Unremarkable. EXTREMITIES: He had no clubbing, cyanosis or edema of his extremities. NEUROLOGIC: He had no focal neurologic deficits. LABORATORY STUDIES: Hemoglobin 16.0, white count 8300, platelet count 143,000. Chemistry panel revealed sodium 123, potassium 4.2, creatinine 0.5. Normal liver function tests. MRI scan of the brain with gadolinium revealed no occult metastatic disease. CT scan of the abdomen and pelvis revealed no occult liver or adrenal metastatic disease on my review, formal report is pending. ASSESSMENT AND PLAN: In summary, my impression is that of stage 3B (T4N2M0) bronchogenic carcinoma of the left lung with significant airway compromise and hemoptysis prior to and through his bronchoscopy. Pathology is still in process and not available. I do recommend combined modality chest radiation with systemic chemotherapy. He is medically inoperable due to his underlying COPD and he is surgically unresectable due to the locally advanced character of his disease at presentation. I had a general initial discussion with the patient, I will review this further with him and his when she is available. He was seen by Dr. Mitzi Mckeon as well, who will assist in his management from a medical oncology standpoint. Thank you for allowing us to participate in his evaluation. MILAN JARRETT MD DR: PAM/eleazar JOB#: [id number] / [id number] MITZI Vasquez GALEN MD [facility]
[2016-07-01] MEDS: IPRATRPIUM/ALBUTEROL 0.5/2.5MG 3 ML NEBU. NEB SCH ×4 (06:12→18:04)
[2016-07-01] MEDS: MORPHINE SULFATE 2 MG/ML DISP.SYRIN. IV PRN ×2 (08:34→20:39)
[2016-07-01] MEDS: METOPROLOL SUCC 24HR ER 25 MG TAB.ER.24H. PO SCH (08:37)
[2016-07-01] MEDS: LISINOPRIL 10 MG TABLET PO SCH (08:37)
[2016-07-01] MEDS: ASPIRIN CHEWABLE 81 MG TABLET. PO SCH (08:38)
[2016-07-01] MEDS: CYCLOBENZAPRINE 10 MG TABLET. PO PRN ×2 (08:38→21:15)
--- NOTE | 2016-07-01 09:15 | PDOC ---
Subjective: Subjective: Onc f/u- Lung cancer NO changed No SOB Dysphagia continues No bony pain Objective: Vital Signs: Vital Signs Date Time Temp Pulse Resp B/P Pulse Ox O2 Delivery O2 Flow Rate FiO2 07/01/16 08:37 111 148/86 07/01/16 07:00 98.1 19 93 Room Air 98.1 06/30/16 12:00 2.0 Physical Exam: Heart: Regular rate Extremities: No edema General: Alert, Oriented X3, Cooperative, No acute distress HEENT: Other (difficulty swallowing/ speakign at times) Psych/Mental Status: Mental status NL Skin: No significant lesion Labs/Imaging: MRI brain neg CT A/P- Cirrhosis, no mets, right iliac lesion 3.4 cm, likely benign Path pending Assessment/Plan A/P: 1. Locally advanced, (probable T4N2Mx Stage III) left upper lung mass/ hilar/ mediastinal invasion. - Path pending from bronch 06/29 - Chemoradiation likely needed in future, not a surgical candidate with poor lung reserve - Port requested - Bone scan requested - F/u next week in clinic to review pending studies, agree on tx plan 2. Alcoholic cirrhosis. 3. Severe COPD, tobacco abuse. 4. Right iliac lesion, likely benign. Bone scan ordered. Ok to DC once port placed and I will f/u next week as above, THANG COLLAZO DO Jul 01, 2016 09:15
--- NOTE | 2016-07-01 09:51 | PDOC ---
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 Doing well post extubation. Some sore throat . Breathing ok. Min hemoptysis yesterday. Central line for chemo planned today. Will simulate for radiation later today with possible plan to begin combined chest radiation and chemo on Wednesday07/06/2016 MILAN JARRETT MD Jul 01, 2016 09:51
[2016-07-01] MEDS: MORPHINE SULFATE 4 MG/ML DISP.SYRIN. IV PRN ×2 (10:12→11:43)
--- NOTE | 2016-07-01 13:42 | PDOC ---
PROGRESS NOTES Chief Complaint Chief Complaint cc: acute respiratory failure, hemoptysis, lung mass, s/p bronchoscopy Locally advanced, (probable T4N2Mx Stage III) left upper lung mass/ hilar/ mediastinal invasion. COPD HTN prior back surgery previous wrist surgery CAD prior CABG Cataracts with subsequent surgery. current tobacco use Plan Port placement today biopsy results pending Follow up with Dr Mckeon and Dr Currie arranged, DC plans today after port, smoking cessation Plan History of Present Illness History of Present Illness at bedside no fever no chills. Vitals Vitals Vital Signs Date Time Temp Pulse Resp B/P Pulse Ox O2 Delivery O2 Flow Rate FiO2 07/01/16 10:48 98.1 98 19 110/70 95 Room Air 98.1 06/30/16 12:00 2.0 Physical Exam General: Alert, Oriented X3, Cooperative, No acute distress Heart: Regular rate Lungs: Clear, Other (diminished inspiratory effort with coarse breath sounds L> R. Negative chest retractions and/or other accessory muscle use. ) Abdomen: Soft, No tenderness Extremities: No edema Skin: No significant lesion Comment Review of Relevant I have reviewed the following items edmond (where applicable) has been applied. Labs Laboratory Tests Test 06/29/16 14:55 06/29/16 15:00 06/29/16 15:27 06/29/16 17:15 O2 Saturation 100% (92-99) 99% (92-99) Arterial Blood pH 7.26 (7.35-7.45) 7.40 (7.35-7.45) Arterial Blood pCO2 at Patient Temp 54mmHg (35-46) 38mmHg (35-46) Arterial Blood pO2 at Patient Temp > 503mmHg (65-108) 141mmHg (65-108) Arterial Blood HCO3 24mmol/L (21-28) 23mmol/L (21-28) Arterial Blood Base Excess -4mmol/L (-3-3) -1mmol/L (-3-3) FiO2 100 40 Nasal Screen MRSA (PCR) Negative (Negative) White Blood Count 8.3x10^3/uL (4.0-11.0) Red Blood Count 5.09x10^6/uL (4.30-5.70) Hemoglobin 16.0g/dL (13.0-17.5) Hematocrit 47.6% (39.0-53.0) Mean Corpuscular Volume 94fL (79-100) Mean Corpuscular Hemoglobin 31pg (25-35) Mean Corpuscular Hemoglobin Concent 34g/dL (31-37) Red Cell Distribution Width 13.2% (11.5-14.5) Platelet Count 143x10^3/uL (140-400) Neutrophils (%) (Auto) 85% (31-73) Lymphocytes (%) (Auto) 6% (24-48) Monocytes (%) (Auto) 8% (0-9) Eosinophils (%) (Auto) 1% (0-3) Basophils (%) (Auto) 1% (0-3) Neutrophils # (Auto) 7.0x10^3uL (1.8-7.7) Lymphocytes # (Auto) 0.5x10^3/uL (1.0-4.8) Monocytes # (Auto) 0.7x10^3/uL (0.0-1.1) Eosinophils # (Auto) 0.0x10^3/uL (0.0-0.7) Basophils # (Auto) 0.0x10^3/uL (0.0-0.2) Sodium Level 123mmol/L (136-145) Potassium Level 4.2mmol/L (3.5-5.1) Chloride Level 88mmol/L (98-107) Carbon Dioxide Level 27mmol/L (21-32) Anion Gap 8 (6-14) Blood Urea Nitrogen 11mg/dL (8-26) Creatinine 0.5mg/dL (0.7-1.3) Estimated GFR (Cockcroft-Gault) 167.4 BUN/Creatinine Ratio 22 (6-20) Glucose Level 106mg/dL (70-99) Calcium Level 8.5mg/dL (8.5-10.1) Total Bilirubin 0.9mg/dL (0.2-1.0) Aspartate Amino Transf (AST/SGOT) 22U/L (15-37) Alanine Aminotransferase (ALT/SGPT) 23U/L (16-63) Alkaline Phosphatase 81U/L (46-116) Total Protein 7.3g/dL (6.4-8.2) Albumin 3.4g/dL (3.4-5.0) Albumin/Globulin Ratio 0.9 (1.0-1.7) Test 06/30/16 05:43 06/30/16 08:20 O2 Saturation 98% (92-99) 98% (92-99) Arterial Blood pH 7.38 (7.35-7.45) 7.38 (7.35-7.45) Arterial Blood pCO2 at Patient Temp 37mmHg (35-46) 38mmHg (35-46) Arterial Blood pO2 at Patient Temp 106mmHg (65-108) 125mmHg (65-108) Arterial Blood HCO3 21mmol/L (21-28) 22mmol/L (21-28) Arterial Blood Base Excess -3mmol/L (-3-3) -3mmol/L (-3-3) FiO2 35 35 Microbiology 06/29/16 Sputum Culture - Preliminary, Resulted 06/29/16 Sputum Result 1 - Preliminary, Resulted Medications Current Medications Albuterol Sulfate (Ventolin Neb Soln) 2.5 mg STK-MED ONCE .ROUTE ; Start at 12:52; Stop 06/29/16 at 12:53; Status DC Albuterol Sulfate 2.5 mg 2.5 mg 1X ONCE NEB Last administered on 06/29/16 12: 58; Start 06/29/16 at 13:00; Stop 06/29/16 at 13:02; Status DC Propofol 100 ml @ As Directed STK-MED ONCE IV ; Start 06/29/16 at 14:52; Stop 06/29/16 at 14:53; Status DC Propofol (Diprivan) 100 ml @ 0 mls/hr CONT PRN IV PER PROTOCOL Last administered on 06/30/16 06:50; Start 06/29/16 at 15:15; Stop 06/30/16 at 10:48 ; Status DC Fentanyl Citrate (Fentanyl 2ml Vial) 25 mcg PRN Q1HR PRN IV COMM Last administered on 06/30/16 14:00; Start 06/29/16 at 15:15 Fentanyl Citrate (Fentanyl 2ml Vial) 50 mcg PRN Q1HR PRN IV COMM Last administered on 07/01/16 06:42; Start 06/29/16 at 15:15 Chlorhexidine Gluconate (Peridex) 15 ml BID MM Last administered on 06/29/16 21:14; Start 06/29/16 at 21:00; Stop 06/30/16 at 08:48; Status DC Morphine Sulfate 2 mg PRN Q1HR PRN IV COMM Last administered on 07/01/16 08:34 ; Start 06/29/16 at 15:15 Morphine Sulfate 4 mg PRN Q1HR PRN IV COMM Last administered on 07/01/16 11:43 ; Start 06/29/16 at 15:15 Midazolam HCl (Versed) 5 mg STK-MED ONCE .ROUTE ; Start 06/29/16 at 15:55; Stop 06/29/16 at 15:56; Status DC Midazolam HCl (Versed) 1 mg 1X ONCE IV Last administered on 06/29/16 16:09; Start 06/29/16 at 16:15; Stop 06/29/16 at 16:16; Status DC Albuterol/ Ipratropium 3 ml 3 ml RTQID NEB Last administered on 07/01/16 06:12 ; Start 06/29/16 at 16:20 Sodium Chloride 1,000 ml @ 100 mls/hr Q10H IV Last administered on 06/29/16 23:18; Start 06/29/16 at 23:15; Stop 06/30/16 at 10:48; Status DC Sodium Chloride 500 ml @ 500 mls/hr 1X ONCE IV Last administered on 23:18; Start 06/29/16 at 23:15; Stop 06/30/16 at 00:14; Status DC Norepinephrine Bitartrate (Levophed 8mg/ 250ml Premix Drip) 250 ml @ 0 mls/hr CONT PRN IV SEE I/O RECORD; Start 06/29/16 at 23:15; Stop 06/30/16 at 10:48; Status DC Acetaminophen (Tylenol) 650 mg PRN Q6HRS PRN PO PAIN; Start 06/30/16 at 07:15 Aspirin (Children'S Aspirin) 81 mg DAILYWBKFT PO Last administered on 08:38; Start 06/30/16 at 08:00 Cyclobenzaprine HCl (Flexeril) 10 mg TID PO ; Start 06/30/16 at 09:00; Stop at 09:17; Status DC Metoprolol Succinate (Toprol Xl) 25 mg DAILY PO Last administered on 07/01/16 08:37; Start 06/30/16 at 09:00 Ferrous Sulfate (Feosol) 325 mg DAILYWBKFT PO ; Start 06/30/16 at 08:00; Stop at 10:48; Status DC Lisinopril (Prinivil) 10 mg DAILY PO Last administered on 07/01/16 08:37; Start 06/30/16 at 09:00 Hydrochlorothiazide (Microzide) 12.5 mg DAILY PO Last administered on 10:41; Start 06/30/16 at 09:00; Stop 06/30/16 at 12:47; Status DC Midazolam HCl (Versed) 5 mg STK-MED ONCE .ROUTE ; Start 06/29/16 at 16:00; Stop 06/30/16 at 08:33; Status DC Cyclobenzaprine HCl (Flexeril) 10 mg PRN TID PRN PO PAIN Last administered on 08:38; Start 06/30/16 at 10:00 Iohexol (Omnipaque 300 Mg/ml) 75 ml 1X ONCE IV Last administered on 06/30/16 09:30; Start 06/30/16 at 09:30; Stop 06/30/16 at 09:31; Status DC Gadobutrol (Gadavist) 6.5 mmol 1X ONCE IV Last administered on 06/30/16 13:23 ; Start 06/30/16 at 13:15; Stop 06/30/16 at 13:16; Status DC Succinylcholine Chloride (Anectine) 200 mg STK-MED ONCE .ROUTE ; Start 06/29/16 at 12:00; Stop 06/30/16 at 14:20; Status DC Propofol (Diprivan) 200 mg STK-MED ONCE IV ; Start 06/29/16 at 12:00; Stop 06/30 at 14:20; Status DC Active Scripts Active Reported Acetaminophen 500 Mg Tablet 1 Tab PO PRN PRN Iron (Ferrous Sulfate, Dried) 159 Mg Tablet.er 159 Mg PO DAILY Proair Hfa (Albuterol Sulfate) 8.5 Gm Hfa.aer.ad 8.5 Gm IH PREOP PRN PRN Symbicort 160-4.5 Mcg Inhaler (Budesonide/Formoterol Fumarate) 10.2 Gm Hfa.aer.ad 2 Puff IH BID Aspir-Low (Aspirin) 81 Mg Tablet.dr 1 Tab PO DAILY Lisinopril-Hctz 10-12.5 Mg Tab (Lisinopril/Hydrochlorothiazide) 1 Each Tablet 1 Tab PO DAILY Metoprolol Succinate ( Xl ) (Metoprolol Succinate) 25 Mg Tab.er.24h 1 Tab PO DAILY Cyclobenzaprine Hcl 10 Mg Tablet 1 Tab PO TID Vitals/I & O Vital Sign - Last 24 Hours 06/30/16 06/30/16 06/30/16 06/30/16 14:00 14:00 14:30 15:00 Pulse 101 101 Resp 18 18 18 18 B/P 146/86 142/84 Pulse Ox 94 95 95 95 O2 Delivery Room Air Room Air Room Air Room Air 06/30/16 06/30/16 06/30/16 06/30/16 16:09 19:00 19:55 20:00 Temp 97.2 97.2 Pulse 118 Resp 20 B/P 124/72 Pulse Ox 95 93 95 O2 Delivery Room Air Room Air Room Air Room Air 06/30/16 06/30/16 06/30/16 07/01/16 20:21 22:46 23:30 01:52 Temp 97.5 97.5 Pulse 99 Resp 18 18 B/P 155/77 Pulse Ox 95 95 95 95 O2 Delivery Room Air Room Air Room Air Room Air 07/01/16 07/01/16 07/01/16 07/01/16 02:22 06:14 06:42 07:00 Temp 98.1 98.1 Pulse 111 Resp 19 20 19 B/P 148/86 Pulse Ox 95 96 96 93 O2 Delivery Room Air Room Air Room Air Room Air 07/01/16 07/01/16 07/01/16 08:37 08:37 10:48 Temp 98.1 98.1 Pulse 111 111 98 Resp 19 B/P 148/86 148/86 110/70 Pulse Ox 95 O2 Delivery Room Air Intake and Output 06/30/16 06/30/16 07/01/16 14:59 22:59 06:59 Intake Total 1072 ml 360 ml 0 ml Output Total 270 ml 625 ml Balance 802 ml -265 ml 0 ml Nutrition Consultation Dietary Evaluation: Recommendations by RD: Increase Calorie Intake, Protein supplementation Comments: Add vanilla flavored Ensure TID Provided education handouts on ways to increase calorie/protein intake at meals Encouraged nutrient dense foods first Expected Outcomes/Goals: meet 75% estimated nutrition needs no further wt loss Interpretation of weight loss: >20% in 1 year Malnutrition Findings: Reduced Boat Operator Strength: N/A Reduced Boat Operator Strength (Non-Sev: N/A Malnutrition related to morbid: No Weight Status: Appropriate Fluid Accumulation (N/A): N/A JIM HAYWARD MD Jul 01, 2016 13:42
[2016-07-01] MEDS ORDERED: VANCOMYCIN 1GM IVPB FOR OMNI 250 ML ONE (13:43)
[2016-07-01] MEDS ORDERED: LIDOCAINE 1%/EPI 1:100,000 20 ML VIAL. ONE (13:43)
[2016-07-01] MEDS ORDERED: HEPARIN PF 500 UNIT/5 ML DISP.SYRIN. IV ONE ×2 (13:43→15:30)
[2016-07-01] MEDS ORDERED: fentaNYL PF VIAL 250 MCG/5 ML VIAL ONE (14:07)
[2016-07-01] MEDS ORDERED: MIDAZOLAM HCL/PF 5 MG/5 ML VIAL. ONE (14:07)
[2016-07-01] MEDS ORDERED: MORP30TA PO (14:17)
[2016-07-01] MEDS ORDERED: fentaNYL PF VIAL 250 MCG/5 ML VIAL IV ONE (15:30)
[2016-07-01] MEDS ORDERED: LIDOCAINE 1%/EPI 1:100,000 20 ML VIAL. INJ ONE (15:30)
[2016-07-01] MEDS ORDERED: MIDAZOLAM HCL/PF 5 MG/5 ML VIAL. IV ONE (15:30)
--- NOTE | 2016-07-01 15:33 | PATHOLOGY ---
CYTOPATHOLOGY REPORT CLINICAL HISTORY: Lung mass. See also [id number]. SPECIMEN(S) RECEIVED: A.Bronchoalveolar lavage, LAURA FINAL DIAGNOSIS: A. Bronchoalveolar lavage, LAURA: SUSPICIOUS FOR MALIGNANCY. Highly atypical squamous cells suspicious for squamous cell carcinoma. PATHOLOGIST: Shanta Cotton M.D. REPORT ELECTRONICALLY SIGNED BY: Shanta Cotton M.D. DATE/TIME: 07/01/2016 15:32 GROSS PATHOLOGY: A. Bronchoalveolar lavage, LAURA: The specimen is submitted unfixed, labeled "Shane Elias". Received by the Cytology Department is five mL of cloudy red fluid. One ThinPrep slide was prepared. (clt 06.30.2016) SEPH[employer]A OPERATIONS CONSULTANT(S): ELEN Mckinnon(ASCP) INITIAL CPT CODE(S): A; 19430 Professional services performed [place] [facility] [place] [address] Technical services performed by [facility] at [address] [place] [address], [address], [place] [address]. PATIENT: SHANE ELIAS /AGE: 710/06/1950 (Age: 65) SEX: M PATIENT #: [id number] ALT CASE #: SPECIMEN COLLECTION DATE: 06/29/2016 SPECIMEN RECEIVED DATE: 06/30/[address] [facility] [address] [place] [address], [address] [place] [address] PHONE: [phone] DIRECTOR: Abel Galarza M.D. * * * END OF REPORT * * *
--- NOTE | 2016-07-01 15:58 | PDOC ---
MODERATE SEDATION ASSESSMENT RISKS/ALTERNATIVES Risks/Alternatives Risks and alternatives of this type of sedation and procedure discussed with: RISK/ALTERNATIVES: Patient H & P ON CHART H & P H & P on chart and reviewed for co-morbid conditions and appropriate labs. H&P ON CHART: Yes STATUS PREG STATUS ASSESSED: N/A MEDS/ALLERGIES REVIEWED Meds/Allergies Reviewed Medications and Allergies including time and route of recently administered narcotics and sedatives. MEDS/ALLERGIES REVIEWED: Yes ASA RATING ASA RATING: III AIRWAY ASSESSMENT Airway Assessment Airway patency, oral function limitations, presence of caps, crowns, dentures, partials, and ability to extend neck assessed. AIRWAY ASSESSMENT: Yes MALLAMPATI SCORE MALLAMPATI SCORE: III PRE-SEDATION ASSESSMENT PRE-SEDATION ASSESSMENT: Yes ISAEL KHALIL MD Jul 01, 2016 15:58
--- NOTE | 2016-07-01 16:08 | PDOC ---
Exam Pediatric Psychologist Pediatric Psychologist Casie Credit Administration Specialist Credit Administration Specialist Zulma Rich Pre-Procedure Diagnosis Pre-Procedure Diagnosis 65 YO male with locally advanced left lung cancer with hilar and mediastinal extension. Post-Procedure Diagnosis Post-Procedure Diagnosis Same Procedure Performed Procedure Performed Sono/fluoro guided tunneled Power Port insertion Type of Anesthesia Type of Anesthesia Local + mod sedation Estimated Blood Loss EBL: Minimal Drain/Tubes Drains/Tubes Rt IJ 8F tunneled Power Port Condition of Patient Condition of Patient Stable. Sedated. No apparent complication. Disposition Disposition From IR return to [facility] for recovery. OK to use tunneled Power Port for blood draws and infusions. Full report to follow. ISAEL KHALIL MD Jul 01, 2016 16:08
[2016-07-01 19:03] LABS: CALCIUM 8.8 mg/dL (8.5-10.1); CREATININE 0.4 mg/dL (0.7-1.3); GFR 216.6; POTASSIUM 3.6 mmol/L (3.5-5.1)
[2016-07-01] MEDS: MORPHINE IR 15 MG TABLET PO PRN (21:15)
--- NOTE | 2016-07-01 22:56 | DS ---
DATE OF DISCHARGE: 07/02/2016 DISCHARGE DIAGNOSES: 1. Locally advanced left upper lung mass, hilar and mediastinal invasion suspected malignancy. 2. Alcoholic cirrhosis. 3. Severe chronic obstructive pulmonary disease, nicotine use. 4. Right iliac lesion suspected benign in nature. 5. Hypertension. 6. Coronary artery disease, prior history of coronary artery bypass graft. BRIEF HOSPITAL COURSE: A 65-year-old male patient admitted to the hospital on 06/29/2016 for respiratory distress and hematolysis. During the hospitalization, he had a bronchoscopy by Dr. Raphael and biopsies were obtained. No obvious bleeding noted, results pending at [facility]. During the hospitalization, Dr. Currie and Dr. Mckeon saw the patient and follow-up appointment has been scheduled for Wednesday for chemo and radiation. Today, the patient deemed clinically stable and he will be discharged after port placement. Plan explained to the patient's who is agreeable with current plan. DISCHARGE EXAMINATION: GENERAL: Alert, oriented x 3. HEART: S1, S2 present. ANTERIOR CHEST: Clear. ABDOMEN: Soft, nontender, no organomegaly. EXTREMITIES: No edema. DISCHARGE DISPOSITION: Home. DISCHARGE CONDITION: Stable. PROGNOSIS: Guarded. FOLLOWUP: With Dr. Mckeon and Dr. Currie for 07/06/2016. Total time spent for discharge is 31 minutes for patient education, counseling and coordination of care. JIM HAYWARD MD DR: GABE/eleazar JOB#: [id number] / [id number] LAM
[2016-07-01 23:53] LABS: BASO # 0.1 x10^3/uL (0.0-0.2); BASO % 1 % (0-3); EOS % 2 % (0-3); HEMOGLOBIN 14.1 g/dL (13.0-17.5); LYMPH % 13 % (24-48); MEAN CORPUSCULAR HEMOGLOBIN 32 pg (25-35); MEAN CORPUSCULAR HGB CONC 34 g/dL (31-37); MEAN CORPUSCULAR VOLUME 95 fL (79-100); MONO % 12 % (0-9); NEUT % 71 % (31-73); PLATELET COUNT 127 x10^3/uL (140-400); RED BLOOD COUNT 4.42 x10^6/uL (4.30-5.70); RED CELL DISTRIBUTION WIDTH 13.3 % (11.5-14.5); WHITE BLOOD COUNT 7.3 x10^3/uL (4.0-11.0)
[2016-07-02] MEDS: MORPHINE SULFATE 4 MG/ML DISP.SYRIN. IV PRN ×2 (02:55→09:26)
[2016-07-02 03:00] VITALS: BP 144/92
[2016-07-02] MEDS: MORPHINE IR 15 MG TABLET PO PRN (05:07)
[2016-07-02] MEDS: CYCLOBENZAPRINE 10 MG TABLET. PO PRN (05:07)
--- NOTE | 2016-07-02 06:19 | RAD ---
Ultrasound and fluoroscopy guided right IJ power port insertion Indication: 65-year-old male with locally advanced left lung cancer, with hilar and mediastinal extension. Power port insertion has been requested for chemotherapy. Fluoroscopy time: 1.3 minutes Kerma-area product: 2 Gycm2 Moderate sedation: 28 minutes moderate sedation was provided utilizing a total of 2.5 mg Versed and 125 mcg fentanyl, IV. The patient was appropriately monitored by a qualified independent observer throughout the course of moderate sedation. Antibiotic: A single dose of Ancef was administered within 1 hour of the procedure start time. Consent: The procedure was explained in its entirety to the patient and/or the patient's designated financial services representative by a member of the treatment team. This included a discussion of risks and benefits and commonly accepted alternatives to the procedure, as well as expected consequences of no treatment at all. Discussion of risks included, but was not limited to, those that are most frequent and those that are rare, but possibly severe or life-threatening, as well as the possibility of unforeseen complications. Sterility: All elements of maximal sterile barrier technique, including the use of a cap, mask, sterile gown, sterile gloves, large sterile sheet, appropriate hand hygiene, and 2% chlorhexidine for cutaneous antisepsis (or acceptable alternative antiseptic per current guidelines) were utilized. Procedure: Informed consent was obtained from the patient. He was placed supine on the angiography table. Preliminary ultrasound examination of right neck revealed wide patency of right internal jugular vein, which was documented with a single hard copy ultrasound image. Right neck and upper chest were then prepped and draped in the usual sterile fashion, utilizing all elements of maximal sterile barrier technique, as described above. Moderate sedation was provided with IV Versed and fentanyl. 1 g Ancef was given IV, prophylactically. Using aseptic technique and local anesthesia, a small skin incision was made lateral to right internal jugular vein, just above clavicle. Using aseptic technique, local anesthesia, direct ultrasound guidance, and the micropuncture system, successful percutaneous entry was achieved into right internal jugular vein. The right IJ venostomy tract was then dilated and the 8 Slovenian catheter from a Bard power port system was easily advanced centrally through an 8.5 Slovenian peel-away sheath, and was positioned with this tip at the level of upper right atrium utilizing fluoroscopic guidance. A skin site suitable for placement of the power port body was then selected and marked along upper anterior aspect of right chest, overlying anterior aspect of right second rib. Using aseptic technique and local anesthesia, a horizontally oriented skin incision was made in this location. A subcutaneous chest wall pocket was then created and was packed with vancomycin soaked gauze. A subcutaneous tunnel was then fashioned between the chest wall pocket and the initial supraclavicular incision. The 8 Slovenian power port catheter was then pulled through the subcutaneous tunnel from superior to inferior, utilizing the tunneling device provided. The catheter was then trimmed to an appropriate length and was connected to the power port body, which had been previously flushed with, and soaked in, vancomycin solution. The vancomycin soaked gauze was then removed from the chest wall pocket, which was then copiously irrigated with vancomycin solution. The power port body was then easily introduced into the chest wall pocket and was secured in place utilizing two 2-0 Vicryl sutures. The power port was then accessed utilizing a Todd needle, was documented to flush and aspirate normally, and was packed with heparinized saline. The chest incision was then closed with 2-0 Vicryl, 4-0 Vicryl, Steri-Strips, and sterile dressing. The small supraclavicular incision was closed with 4-0 Vicryl, Steri-Strips, and sterile dressing. Patient tolerated the procedure well without apparent complication. Satisfactory position of the power port was confirmed with a single fluoroscopic spot image. Impression: Successful, uneventful ultrasound and fluoroscopy guided placement of right IJ 8 Slovenian tunneled power port, as described.
[2016-07-02 07:20] VITALS: BP 145/84
[2016-07-02] MEDS: IPRATRPIUM/ALBUTEROL 0.5/2.5MG 3 ML NEBU. NEB SCH ×2 (07:56→10:53)
--- NOTE | 2016-07-02 09:25 | PATHOLOGY ---
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 (PLEASE SEE COMMENT) COMMENT: The findings in this case were discussed with Dr. Usha Currie on 07/01/16 at approximately 9:00 a.m. This case has also been reviewed by Dr. Benito Solis M.D. who agrees with the diagnosis. (SKM:; d/t: 07/01/16) REPORT ELECTRONICALLY SIGNED BY: Shanta Cotton M.D. DATE/TIME: 07/02/2016 09:25 * * * * * * * * GROSS PATHOLOGY: Received in formalin labeled "Shane Elias," and additionally labeled on the requisition as, "BBX LAURA". Received are two segments of baugh soft tissue measuring 0.7 x 0.5 x 0.1 cm in aggregate dimensions and ranging from 0.4 to 0.7 cm in maximum dimension. The specimen is submitted entirely in cassette A1. (CAA; 06/30/2016) INITIAL CPT CODE(S): A; 37224 Professional services performed [place] [facility] [place] [address] Technical services performed by [facility] at [address] [place] [address], [facility] [address] [place] [address]. SPECIMEN(S) RECEIVED: A.Bronchial biopsy LAURA CLINICAL HISTORY: Lung mass PATIENT: SHANE ELIAS /AGE: 710/06/1950 (Age: 65) PATIENT #: [id number] ALT CASE #: SPECIMEN COLLECTION DATE: 06/29/2016 SPECIMEN RECEIVED DATE: 06/30/2016 [facility] - [address] [place] [address] - PHONE: [phone] * * * END OF REPORT * * *
[2016-07-02] MEDS: LISINOPRIL 10 MG TABLET PO SCH (09:28)
[2016-07-02] MEDS: ASPIRIN CHEWABLE 81 MG TABLET. PO SCH (09:28)
[2016-07-02] MEDS: METOPROLOL SUCC 24HR ER 25 MG TAB.ER.24H. PO SCH (09:29)
[2016-07-02 10:55] VITALS: BP 135/77
--- NOTE | 2016-07-02 14:38 | PDOC ---
Provider Note Provider Note St IIIB squamous cell carcinoma. Central line placed. Hemoptysis essentially resolved. Plan on beginning chest radiation 07/06/2016 with chemo to follow later in the week. MILAN JARRETT MD Jul 02, 2016 14:38
--- NOTE | 2016-07-02 14:44 | PDOC ---
PROGRESS NOTES Chief Complaint Chief Complaint cc: acute respiratory failure, hemoptysis, lung mass, s/p bronchoscopy Locally advanced, (probable T4N2Mx Stage III) left upper lung mass/ hilar/ mediastinal invasion. COPD HTN prior back surgery previous wrist surgery CAD prior CABG Cataracts with subsequent surgery. current tobacco use Plan s/p Port placement biopsy results pending Follow up with Dr Mckeon and Dr Currie arranged, smoking cessation History of Present Illness History of Present Illness at bedside no fever no chills. Vitals Vitals Vital Signs Date Time Temp Pulse Resp B/P Pulse Ox O2 Delivery O2 Flow Rate FiO2 07/02/16 13:15 94 Room Air 2.0 07/02/16 10:55 97.6 98 20 135/77 97.6 Physical Exam General: Alert, Oriented X3, Cooperative, No acute distress Heart: Regular rate Lungs: Clear, Other (diminished inspiratory effort with coarse breath sounds L> R. Negative chest retractions and/or other accessory muscle use. ) Abdomen: Soft, No tenderness Extremities: No edema Skin: No significant lesion Labs LABS Laboratory Tests Test 07/01/16 18:44 07/01/16 23:47 Sodium Level 131mmol/L (136-145) Potassium Level 3.6mmol/L (3.5-5.1) Chloride Level 94mmol/L (98-107) Carbon Dioxide Level 31mmol/L (21-32) Anion Gap 6 (6-14) Blood Urea Nitrogen 9mg/dL (8-26) Creatinine 0.4mg/dL (0.7-1.3) Estimated GFR (Cockcroft-Gault) 216.6 Glucose Level 129mg/dL (70-99) Calcium Level 8.8mg/dL (8.5-10.1) White Blood Count 7.3x10^3/uL (4.0-11.0) Red Blood Count 4.42x10^6/uL (4.30-5.70) Hemoglobin 14.1g/dL (13.0-17.5) Hematocrit 42.0% (39.0-53.0) Mean Corpuscular Volume 95fL (79-100) Mean Corpuscular Hemoglobin 32pg (25-35) Mean Corpuscular Hemoglobin Concent 34g/dL (31-37) Red Cell Distribution Width 13.3% (11.5-14.5) Platelet Count 127x10^3/uL (140-400) Neutrophils (%) (Auto) 71% (31-73) Lymphocytes (%) (Auto) 13% (24-48) Monocytes (%) (Auto) 12% (0-9) Eosinophils (%) (Auto) 2% (0-3) Basophils (%) (Auto) 1% (0-3) Neutrophils # (Auto) 5.2x10^3uL (1.8-7.7) Lymphocytes # (Auto) 1.0x10^3/uL (1.0-4.8) Monocytes # (Auto) 0.9x10^3/uL (0.0-1.1) Eosinophils # (Auto) 0.2x10^3/uL (0.0-0.7) Basophils # (Auto) 0.1x10^3/uL (0.0-0.2) Assessment and Plan Assessmemt and Plan Problems Medical Problems: (1) Lung mass Status: Acute Problems: Comment Review of Relevant I have reviewed the following items edmond (where applicable) has been applied. Labs Laboratory Tests Test 07/01/16 18:44 07/01/16 23:47 Sodium Level 131mmol/L (136-145) Potassium Level 3.6mmol/L (3.5-5.1) Chloride Level 94mmol/L (98-107) Carbon Dioxide Level 31mmol/L (21-32) Anion Gap 6 (6-14) Blood Urea Nitrogen 9mg/dL (8-26) Creatinine 0.4mg/dL (0.7-1.3) Estimated GFR (Cockcroft-Gault) 216.6 Glucose Level 129mg/dL (70-99) Calcium Level 8.8mg/dL (8.5-10.1) White Blood Count 7.3x10^3/uL (4.0-11.0) Red Blood Count 4.42x10^6/uL (4.30-5.70) Hemoglobin 14.1g/dL (13.0-17.5) Hematocrit 42.0% (39.0-53.0) Mean Corpuscular Volume 95fL (79-100) Mean Corpuscular Hemoglobin 32pg (25-35) Mean Corpuscular Hemoglobin Concent 34g/dL (31-37) Red Cell Distribution Width 13.3% (11.5-14.5) Platelet Count 127x10^3/uL (140-400) Neutrophils (%) (Auto) 71% (31-73) Lymphocytes (%) (Auto) 13% (24-48) Monocytes (%) (Auto) 12% (0-9) Eosinophils (%) (Auto) 2% (0-3) Basophils (%) (Auto) 1% (0-3) Neutrophils # (Auto) 5.2x10^3uL (1.8-7.7) Lymphocytes # (Auto) 1.0x10^3/uL (1.0-4.8) Monocytes # (Auto) 0.9x10^3/uL (0.0-1.1) Eosinophils # (Auto) 0.2x10^3/uL (0.0-0.7) Basophils # (Auto) 0.1x10^3/uL (0.0-0.2) Laboratory Tests Test 07/01/16 18:44 07/01/16 23:47 Sodium Level 131mmol/L (136-145) Potassium Level 3.6mmol/L (3.5-5.1) Chloride Level 94mmol/L (98-107) Carbon Dioxide Level 31mmol/L (21-32) Anion Gap 6 (6-14) Blood Urea Nitrogen 9mg/dL (8-26) Creatinine 0.4mg/dL (0.7-1.3) Estimated GFR (Cockcroft-Gault) 216.6 Glucose Level 129mg/dL (70-99) Calcium Level 8.8mg/dL (8.5-10.1) White Blood Count 7.3x10^3/uL (4.0-11.0) Red Blood Count 4.42x10^6/uL (4.30-5.70) Hemoglobin 14.1g/dL (13.0-17.5) Hematocrit 42.0% (39.0-53.0) Mean Corpuscular Volume 95fL (79-100) Mean Corpuscular Hemoglobin 32pg (25-35) Mean Corpuscular Hemoglobin Concent 34g/dL (31-37) Red Cell Distribution Width 13.3% (11.5-14.5) Platelet Count 127x10^3/uL (140-400) Neutrophils (%) (Auto) 71% (31-73) Lymphocytes (%) (Auto) 13% (24-48) Monocytes (%) (Auto) 12% (0-9) Eosinophils (%) (Auto) 2% (0-3) Basophils (%) (Auto) 1% (0-3) Neutrophils # (Auto) 5.2x10^3uL (1.8-7.7) Lymphocytes # (Auto) 1.0x10^3/uL (1.0-4.8) Monocytes # (Auto) 0.9x10^3/uL (0.0-1.1) Eosinophils # (Auto) 0.2x10^3/uL (0.0-0.7) Basophils # (Auto) 0.1x10^3/uL (0.0-0.2) Microbiology 06/29/16 Sputum Culture - Final, Complete 06/29/16 Sputum Result 1 - Final, Complete Medications Current Medications Albuterol Sulfate (Ventolin Neb Soln) 2.5 mg STK-MED ONCE .ROUTE ; Start at 12:52; Stop 06/29/16 at 12:53; Status DC Albuterol Sulfate 2.5 mg 2.5 mg 1X ONCE NEB Last administered on 06/29/16 12: 58; Start 06/29/16 at 13:00; Stop 06/29/16 at 13:02; Status DC Propofol 100 ml @ As Directed STK-MED ONCE IV ; Start 06/29/16 at 14:52; Stop 06/29/16 at 14:53; Status DC Propofol (Diprivan) 100 ml @ 0 mls/hr CONT PRN IV PER PROTOCOL Last administered on 06/30/16 06:50; Start 06/29/16 at 15:15; Stop 06/30/16 at 10:48 ; Status DC Fentanyl Citrate (Fentanyl 2ml Vial) 25 mcg PRN Q1HR PRN IV COMM Last administered on 06/30/16 14:00; Start 06/29/16 at 15:15 Fentanyl Citrate (Fentanyl 2ml Vial) 50 mcg PRN Q1HR PRN IV COMM Last administered on 07/01/16 06:42; Start 06/29/16 at 15:15 Chlorhexidine Gluconate (Peridex) 15 ml BID MM Last administered on 06/29/16 21:14; Start 06/29/16 at 21:00; Stop 06/30/16 at 08:48; Status DC Morphine Sulfate 2 mg PRN Q1HR PRN IV COMM Last administered on 07/01/16 20:39 ; Start 06/29/16 at 15:15 Morphine Sulfate 4 mg PRN Q1HR PRN IV COMM Last administered on 07/02/16 09:26 ; Start 06/29/16 at 15:15 Midazolam HCl (Versed) 5 mg STK-MED ONCE .ROUTE ; Start 06/29/16 at 15:55; Stop 06/29/16 at 15:56; Status DC Midazolam HCl (Versed) 1 mg 1X ONCE IV Last administered on 06/29/16 16:09; Start 06/29/16 at 16:15; Stop 06/29/16 at 16:16; Status DC Albuterol/ Ipratropium 3 ml 3 ml RTQID NEB Last administered on 07/02/16 10:53 ; Start 06/29/16 at 16:20 Sodium Chloride 1,000 ml @ 100 mls/hr Q10H IV Last administered on 06/29/16 23:18; Start 06/29/16 at 23:15; Stop 06/30/16 at 10:48; Status DC Sodium Chloride 500 ml @ 500 mls/hr 1X ONCE IV Last administered on 23:18; Start 06/29/16 at 23:15; Stop 06/30/16 at 00:14; Status DC Norepinephrine Bitartrate (Levophed 8mg/ 250ml Premix Drip) 250 ml @ 0 mls/hr CONT PRN IV SEE I/O RECORD; Start 06/29/16 at 23:15; Stop 06/30/16 at 10:48; Status DC Acetaminophen (Tylenol) 650 mg PRN Q6HRS PRN PO PAIN; Start 06/30/16 at 07:15 Aspirin (Children'S Aspirin) 81 mg DAILYWBKFT PO Last administered on 09:28; Start 06/30/16 at 08:00 Cyclobenzaprine HCl (Flexeril) 10 mg TID PO ; Start 06/30/16 at 09:00; Stop at 09:17; Status DC Metoprolol Succinate (Toprol Xl) 25 mg DAILY PO Last administered on 07/02/16 09:29; Start 06/30/16 at 09:00 Ferrous Sulfate (Feosol) 325 mg DAILYWBKFT PO ; Start 06/30/16 at 08:00; Stop at 10:48; Status DC Lisinopril (Prinivil) 10 mg DAILY PO Last administered on 07/02/16 09:28; Start 06/30/16 at 09:00 Hydrochlorothiazide (Microzide) 12.5 mg DAILY PO Last administered on 10:41; Start 06/30/16 at 09:00; Stop 06/30/16 at 12:47; Status DC Midazolam HCl (Versed) 5 mg STK-MED ONCE .ROUTE ; Start 06/29/16 at 16:00; Stop 06/30/16 at 08:33; Status DC Cyclobenzaprine HCl (Flexeril) 10 mg PRN TID PRN PO PAIN Last administered on 05:07; Start 06/30/16 at 10:00 Iohexol (Omnipaque 300 Mg/ml) 75 ml 1X ONCE IV Last administered on 06/30/16 09:30; Start 06/30/16 at 09:30; Stop 06/30/16 at 09:31; Status DC Gadobutrol (Gadavist) 6.5 mmol 1X ONCE IV Last administered on 06/30/16 13:23 ; Start 06/30/16 at 13:15; Stop 06/30/16 at 13:16; Status DC Succinylcholine Chloride (Anectine) 200 mg STK-MED ONCE .ROUTE ; Start 06/29/16 at 12:00; Stop 06/30/16 at 14:20; Status DC Propofol (Diprivan) 200 mg STK-MED ONCE IV ; Start 06/29/16 at 12:00; Stop 06/30 at 14:20; Status DC Lidocaine/ Epinephrine 20 ml 20 ml STK-MED ONCE .ROUTE ; Start 07/01/16 at 13:43 ; Stop 07/01/16 at 13:44; Status DC Heparin Sodium/ Sodium Chloride 500 ml @ As Directed STK-MED ONCE .ROUTE ; Start 07/01/16 at 13:43; Stop 07/01/16 at 13:44; Status DC Heparin Sodium (Porcine) 500 unit 500 unit STK-MED ONCE IV ; Start 07/01/16 at 13:43; Stop 07/01/16 at 13:44; Status DC Vancomycin HCl 250 ml @ As Directed STK-MED ONCE .ROUTE ; Start 07/01/16 at 13: 43; Stop 07/01/16 at 13:44; Status DC Midazolam HCl (Versed) 5 mg STK-MED ONCE .ROUTE ; Start 07/01/16 at 14:07; Stop 07/01/16 at 14:08; Status DC Fentanyl Citrate 250 mcg 250 mcg STK-MED ONCE .ROUTE ; Start 07/01/16 at 14:07; Stop 07/01/16 at 14:08; Status DC Cefazolin Sodium (Ancef 1gm Ivpb For Omni) 50 ml @ As Directed STK-MED ONCE IV ; Start 07/01/16 at 14:07; Stop 07/01/16 at 14:08; Status DC Morphine Sulfate (Morphine Ir) 15 mg PRN TID PRN PO PAIN Last administered on 05:07; Start 07/01/16 at 14:15 Heparin Sodium/ Sodium Chloride 1,000 unit 1X ONCE IART Last administered on 15:30; Start 07/01/16 at 15:30; Stop 07/01/16 at 15:31; Status DC Midazolam HCl (Versed) 5 mg 1X ONCE IV Last administered on 07/01/16 15:30; Start 07/01/16 at 15:30; Stop 07/01/16 at 15:31; Status DC Fentanyl Citrate 250 mcg 250 mcg 1X ONCE IV Last administered on 07/01/16 15: 30; Start 07/01/16 at 15:30; Stop 07/01/16 at 15:31; Status DC Cefazolin Sodium (Ancef 1gm Ivpb For Omni) 50 ml @ 100 mls/hr 1X ONCE IV Last administered on 07/01/16 15:30; Start 07/01/16 at 15:30; Stop 07/01/16 at 15:59; Status DC Heparin Sodium (Porcine) (Hep Lock Adult) 500 unit 1X ONCE IV ; Start 07/01/16 at 15:30; Stop 07/01/16 at 15:31; Status DC Lidocaine/ Epinephrine (Xylocaine 1%-Epi 1:100,000) 20 ml 1X ONCE INJ Last administered on 07/01/16t 15:30; Start 07/01/16 at 15:30; Stop 07/01/16 at 15:31 ; Status DC Active Scripts Active Morphine Sulfate 30 Mg Tablet 1 Tab PO TID Reported Acetaminophen 500 Mg Tablet 1 Tab PO PRN PRN Iron (Ferrous Sulfate, Dried) 159 Mg Tablet.er 159 Mg PO DAILY Proair Hfa (Albuterol Sulfate) 8.5 Gm Hfa.aer.ad 8.5 Gm IH PREOP PRN PRN Aspir-Low (Aspirin) 81 Mg Tablet.dr 1 Tab PO DAILY Lisinopril-Hctz 10-12.5 Mg Tab (Lisinopril/Hydrochlorothiazide) 1 Each Tablet 1 Tab PO DAILY Metoprolol Succinate ( Xl ) (Metoprolol Succinate) 25 Mg Tab.er.24h 1 Tab PO DAILY Cyclobenzaprine Hcl 10 Mg Tablet 1 Tab PO TID Vitals/I & O Vital Sign - Last 24 Hours 07/01/16 07/01/16 07/01/16 07/01/16 15:30 15:35 17:11 17:18 Pulse 93 89 85 Resp 16 16 B/P 132/83 137/80 Pulse Ox 98 99 93 94 O2 Delivery Nasal Cannula Nasal Cannula Room Air Room Air O2 Flow Rate 2.0 2.0 07/01/16 07/01/16 07/01/16 07/01/16 17:33 17:48 18:04 18:05 Pulse 84 99 B/P 131/80 134/80 137/79 Pulse Ox 94 90 96 O2 Delivery Room Air Room Air Room Air Room Air 07/01/16 07/01/16 07/01/16 07/02/16 19:00 20:38 23:00 03:00 Temp 98.1 97.5 97.9 98.1 97.5 97.9 Pulse 50 89 89 90 Resp 20 20 18 17 B/P 121/71 121/70 132/80 144/92 Pulse Ox 94 94 93 94 O2 Delivery Room Air Room Air Room Air Room Air 07/02/16 07/02/16 07/02/16 07/02/16 07:20 07:57 09:26 09:28 Temp 97.5 97.5 Pulse 100 100 Resp 20 B/P 145/84 145/84 Pulse Ox 93 93 O2 Delivery Room Air Room Air Room Air 07/02/16 07/02/16 07/02/16 07/02/16 09:29 10:54 10:55 13:15 Temp 97.6 97.6 Pulse 100 98 Resp 20 B/P 145/84 135/77 Pulse Ox 94 94 O2 Delivery Room Air Room Air Room Air O2 Flow Rate 2.0 Intake and Output 07/01/16 07/01/16 07/02/16 14:59 22:59 06:59 Intake Total 200 ml 120 ml Balance 200 ml 120 ml Nutrition Consultation Dietary Evaluation: Recommendations by RD: Increase Calorie Intake, Protein supplementation Comments: Add vanilla flavored Ensure TID Provided education handouts on ways to increase calorie/protein intake at meals Encouraged nutrient dense foods first Expected Outcomes/Goals: meet 75% estimated nutrition needs no further wt loss Interpretation of weight loss: >20% in 1 year Malnutrition Findings: Reduced Database Designer Strength: N/A Reduced Database Designer Strength (Non-Sev: N/A Malnutrition related to morbid: No Weight Status: Appropriate Fluid Accumulation (N/A): N/A JIM HAYWARD MD Jul 02, 2016 14:44
--- NOTE | 2016-07-02 15:55 | RAD ---
Nuclear medicine whole body bone scan History: Staging lung cancer. Comparison: CT abdomen pelvis 06/30/2016 Technique: Examination performed after intravenous administration of 25.0 mCi Technetium 99m MDP. Planar images of the whole body were obtained in the anterior and posterior projections. Findings: Distribution of radiopharmaceutical appears physiologic. No focal activity to suggest osteoblastic metastases can be seen. Specifically, no abnormal activity is seen involving the right iliac crest at site of lytic lesion. The urinary bladder is distended. Impression: No evidence of osteoblastic metastatic disease.
--- NOTE | 2016-07-03 15:53 | RESP ---
DATE OF SERVICE: 07/01/2016 The patient underwent full pulmonary function testing on 07/01/2016. FEV1 to FVC ratio was 35%; FEV1 was 840 mL at 28% of predicted, FVC was 2.40 liters at 60% of predicted. There was no significant bronchodilator response. Total lung capacity was elevated. Residual volume was elevated at 339% of predicted. Diffusion capacity was preserved. IMPRESSION: 1. Severe air flow limitation with an FEV1 at 28% of predicted. 2. No significant bronchodilator response. 3. Preserved diffusion capacity. CRISTIAN RAZO MD DR: GISELE/eleazar JOB#: [id number] / [id number] CHAYA Amezcua MD
== END 2016-07-02 14:40 | disposition home or self-care (01) | DRG 166 ==
LOC: SURG 11:43 → 1 WEST ICU 14:30 → 6 SOUTH 06-30 22:15
PROVIDERS: ADMIT Internal Medicine; ATTEND Internal Medicine
PROC: 0BBG8ZX Excision of Left Upper Lung Lobe, Via Natural or Artificial Opening Endoscopic, Diagnostic (ICD-10-PCS; 2016-06-29)
PROC: 0BH18EZ Insertion of Endotracheal Airway into Trachea, Via Natural or Artificial Opening Endoscopic (ICD-10-PCS; 2016-06-29)
PROC: 3E0F8GC Introduction of Other Therapeutic Substance into Respiratory Tract, Via Natural or Artificial Opening Endoscopic (ICD-10-PCS; 2016-06-29)
PROC: 5A1935Z Respiratory Ventilation, Less than 24 Consecutive Hours (ICD-10-PCS; principal; 2016-06-29 13:30)
PROC: 0BP1XDZ Removal of Intraluminal Device from Trachea, External Approach (ICD-10-PCS; 2016-06-30)
DX: C34.12 Malignant neoplasm of upper lobe, left bronchus or lung (principal); J96.02 Acute respiratory failure with hypercapnia; G81.94 Hemiplegia, unspecified affecting left nondominant side; E87.2 Acidosis; I10 Essential (primary) hypertension; J44.9 Chronic obstructive pulmonary disease, unspecified; Z82.49 Family history of ischemic heart disease and other diseases of the circulatory system; F10.10 Alcohol abuse, uncomplicated; F41.9 Anxiety disorder, unspecified; G89.29 Other chronic pain; I25.10 Atherosclerotic heart disease of native coronary artery without angina pectoris; J38.01 Paralysis of vocal cords and larynx, unilateral; K70.30 Alcoholic cirrhosis of liver without ascites; R13.10 Dysphagia, unspecified; Z80.8 Family history of malignant neoplasm of other organs or systems; Z85.118 Personal history of other malignant neoplasm of bronchus and lung; Z95.1 Presence of aortocoronary bypass graft; Z88.8 Allergy status to other drugs, medicaments and biological substances; F17.210 Nicotine dependence, cigarettes, uncomplicated
CPT/HCPCS: 31622; 36415; 36561; 36600; 70553; 71010; 74177; 76937; 77001; 77290; 77334; 78306; 80048; 80053; 82805; 85027; 85610; 85730; 87070; 87205; 87641; 88112; 88305; 94002; 94003; 94060; 94250; 94640; 94729; 94760; 96374; A9503; C1751; C1892; J0330; J0690; J2250; J2270; J2704; J3010; J3490; J7030; J7040; J7620; Q9967; A9585

== ENCOUNTER → 2016-07-21 | Outpatient (CLI) | payer BC ==
[2016-07-01 14:34] VITALS: BP 108/64
[~2016-07-21] MED LIST: ACET500T68 PO; ALBU8.5H5 IH; ASPI81TA50 PO; BUDE10.2 IH; CONTRAST GIVEN MC PRN; CYCL10TA2 PO; ESOM40CA PO; FERR159T3 PO; HEPARIN PF 500 UNIT/5 ML DISP.SYRIN. IV ONE; IOHEXOL 300 MG/ML 50 ML VIAL. IV ONE; IOHEXOL 300 MG/ML 50 ML VIAL. ONE; LISI1TAB3 PO; METO25TA9 PO; MORP30TA PO
--- NOTE | 2016-07-21 13:39 | PDOC ---
Exam Business Services Manager Business Services Manager Casie Surgeon Assistant Surgeon Assistant B Cates Pre-Procedure Diagnosis Pre-Procedure Diagnosis 65 YO male with lung cancer, and with right chest wall hematoma, s/p power port insertion. No clinical evidence of superimposed infection. Post-Procedure Diagnosis Post-Procedure Diagnosis Same. Procedure Performed Procedure Performed Right chest tunneled Power Port check/injection. Type of Anesthesia Type of Anesthesia None Estimated Blood Loss EBL: None Condition of Patient Condition of Patient Stable. No apparent complication. Disposition Disposition Discharge home with , with Power Port accessed. OK to use Power Port for chemotx Wednesday with Dr Mckeon. Return promptly to [facility] IR or ED for signs of superimposed infection. Full report to follow. ISAEL KHALIL MD July 21, 2016 13:39
--- NOTE | 2016-07-21 13:45 | PDOC1 ---
History and Physical Date of Procedure Date of Admission 07/21/16 Procedure Procedure Fluoro guided right chest Power Port check/injection. Indication Indication 65 YO male with lung cancer. Now with right chest wall hematoma, s/p Power Port insertion 07/01/16. Past Medical History Past Medical History See Nursing Pre procedure PMH Past Surgical History Past Surgical History See Nursing Pre procedure PSH Current Medications Current Medications Current Medications Iohexol (Omnipaque 300 Mg/ml) 50 ml STK-MED ONCE .ROUTE ; Start 07/21/16 at 12: 29; Stop 07/21/16 at 12:30; Status DC Heparin Sodium (Porcine) (Hep Lock Adult) 500 unit STK-MED ONCE IV ; Start 07/21 at 13:11; Stop 07/21/16 at 13:12; Status DC Heparin Sodium (Porcine) (Hep Lock Adult) 500 unit 1X ONCE IV Last administered on 07/21/16t 13:18; Start 07/21/16 at 13:15; Stop 07/21/16 at 13:17 ; Status DC Iohexol (Omnipaque 300 Mg/ml) 6 ml 1X ONCE IV Last administered on 07/21/16t 13:22; Start 07/21/16 at 13:30; Stop 07/21/16 at 13:31; Status DC Info (Do NOT chart on this entry -- for MONITORING) 1 each PRN DAILY PRN MC SEE COMMENTS; Start 07/21/16 at 13:30; Stop 07/23/16 at 13:29 Active Scripts Active Reported Symbicort 160-4.5 Mcg Inhaler (Budesonide/Formoterol Fumarate) 10.2 Gm Hfa.aer.ad 2 Puff IH BID Nexium Capsule (Esomeprazole Magnesium) 40 Mg Capsule.dr 40 Mg PO BID Morphine Sulfate 30 Mg Tablet 30 Mg PO TID Iron (Ferrous Sulfate, Dried) 159 Mg Tablet.er 159 Mg PO QODAY Proair Hfa (Albuterol Sulfate) 8.5 Gm Hfa.aer.ad 8.5 Gm IH Q6HRS PRN Aspir-Low (Aspirin) 81 Mg Tablet.dr 1 Tab PO DAILY Lisinopril-Hctz 10-12.5 Mg Tab (Lisinopril/Hydrochlorothiazide) 1 Each Tablet 1 Tab PO DAILY Metoprolol Succinate ( Xl ) (Metoprolol Succinate) 25 Mg Tab.er.24h 1 Tab PO DAILY Cyclobenzaprine Hcl 10 Mg Tablet 1 Tab PO TID Allergies Allergies: Coded Allergies: hydrocodone (Verified Allergy, Intermediate, Hives, 06/29/16) Physical Exam Lungs: Clear to auscultation Heart: Regular rate Psych/Mental Status: Mental status NL Other Prominent right chest wall hematoma about recently placed Power Port. No evidence of superimposed infection. Assessment Assessment Rigth chest wall hematoma, about recently placed Power Port, without clinical evidence of infection. Problems: Plan Plan Fluoro guided Power Port check/infection. Power Port removal if signs of infection encountered. ISAEL KHALIL MD July 21, 2016 13:45
--- NOTE | 2016-07-21 16:14 | RAD ---
Fluoroscopy guided right IJ tunneled power port injection/check Indication: 65-year-old male with lung cancer, status post image guided right chest tunneled power port insertion on 07/01/2016. He now presents for power port check due to interval appearance of a moderately large right chest wall hematoma. Fluoroscopy time: 0.2 minutes Kerma-area Product: 5 Gycm2 Contrast material: 10 cc Omnipaque 300 Anesthesia: None Procedure: Informed consent was obtained from the patient. He was placed supine on the angiography table. Preliminary physical examination confirmed the presence of a moderately large right chest wall hematoma, surrounding the power port subcutaneous chest wall pocket. Of note, there was clinical evidence of superimposed infection. Preliminary fluoroscopic evaluation revealed intact power port, with catheter tip in good position at the level of upper right atrium. Right chest was prepped and draped in the usual sterile fashion. Using aseptic technique, the power port was carefully accessed utilizing a 22-gauge Todd needle. Blood was easily aspirated through the power port. A small amount of Omnipaque 300 was then slowly injected through the power port, confirming patency, without extraluminal extravasation to suggest catheter fracture or perforation. A more forceful injection of Omnipaque 300 was then performed, and DSA images were obtained, confirming wide patency, without pericatheter thrombus or fibrin. Referring oncologist was contacted. The power port was left accessed for planned chemotherapy 07/24/2016. An overlying sterile dressing was applied. Patient tolerated the procedure well without apparent complication. Impression: 1. Moderately large right chest wall hematoma surrounding power port subcutaneous chest wall pocket, without clinical evidence of infection. 2. The power port was easily accessed utilizing a Todd needle, and contrast injection was performed. The power port system is intact, lies in good position, and is okay for use. 3. The patient was discharged home from CV observation with instructions to promptly return to [facility] interventional radiology Department or emergency department for signs of right chest wall infection.
== END | disposition home or self-care (01) ==
LOC: INTRAD 12:23
PROVIDERS: ATTEND Internal Medicine Hematology & Oncology
DX: C34.90 Malignant neoplasm of unspecified part of unspecified bronchus or lung (principal); S20.211A Contusion of right front wall of thorax, initial encounter; E78.00 Pure hypercholesterolemia, unspecified; I10 Essential (primary) hypertension; J44.9 Chronic obstructive pulmonary disease, unspecified; D64.9 Anemia, unspecified; I25.10 Atherosclerotic heart disease of native coronary artery without angina pectoris; Z72.89 Other problems related to lifestyle; Z98.41 Cataract extraction status, right eye; Z98.42 Cataract extraction status, left eye; M19.90 Unspecified osteoarthritis, unspecified site
CPT/HCPCS: 36598; Q9967